=== PATIENT | male | born 1940 | race Caucasian/White ===

== ENCOUNTER 2017-12-11 18:19 | Inpatient (IN) | payer MEDICARE, BC ==
[~2017-12-11] VITALS: Ht 182.9 cm; Wt 112.9 kg
[~2017-12-11 18:19] MED LIST: ADULT LOW DOSE81 MG PO; ALLOPURINOL 10100 M1 PO; AMITRIPTYLINE H50 M2 PO; BACLOFEN20 MG PO; CENTRUM SILVER1 EAC1 PO; CENTRUM SILVER1 EAC4 PO; COREG CR20 MG PO; DIOVAN PO; DIOVAN160 MG PO; FIBER0.52 GM PO; FISH OIL 1,0001 EAC5 PO; FLEXERIL PO; FLORANEX TABLE1 EACH PO; GLUCOPHAGE1000 MG PO; GLUCOTROL5 MG PO; HYDROCODONE-AP1 EA10 PO; HYDROCODONE-AP1 EAC6 PO; LISINOPRIL-HCT1 EAC1 PO; MAGOX 400400 MG PO; MUCINEX TA600 MG/TA1 PO; OMEPRAZOLE20 MG PO; PIROXICAM10 MG PO; PROXICAM PO; SYNTHROID100 MCG PO; TAMSULOSIN HCL0.4 MG PO; TRAMADOL HCL50 MG PO; UNASYN 3 GM VIAL3 G1 IVPB; VANCOCIN 250 M250 M1 PO; ZYLOPRIM100 MG PO
[2017-12-11 18:22] VITALS: BP 151/92
[2017-12-11] MEDS ORDERED: FLEXERIL PO (18:27)
[2017-12-11] MEDS ORDERED: ASA81BEC PO (18:27)
[2017-12-11] MEDS ORDERED: MIRALAX17 GM PO (18:28)
[2017-12-11] MEDS ORDERED: ELIQUIS5 MG PO (18:28)
[2017-12-11] MEDS ORDERED: TROSPIUM CHLORI20 MG PO (18:28)
[2017-12-11] MEDS ORDERED: FELDENE10 MG PO (18:29)
[2017-12-11] MEDS ORDERED: EFFER-K 10 MEQ10 ME1 PO (18:29)
[2017-12-11 18:46] LABS: ABSOLUTE EOSINOPHILS 0.1 thou/uL (0.0-0.7); ABSOLUTE LYMPHOCYTES 1.3 thou/uL (0.8-5.3); ABSOLUTE MONOCYTES 0.5 thou/uL (0.0-1.2); ABSOLUTE NEUTROPHILS 6.1 thou/uL (1.6-8.1); BASOPHILS 0.3 %; EOSINOPHILS 1.2 %; HEMATOCRIT 43.1 % (42.0-52.0); HEMOGLOBIN 14.2 gm/dL (14.0-18.0); LYMPHOCYTES 16.4 %; MCH 29.4 pg (26.0-34.0); MCV 88.9 fL (80.0-100.0); MONOCYTES 6.5 %; MPV 9.6 fl. (7.2-11.1); NUCLEATED RBCS 0 /100WBC; PLATELET COUNT* 117 thou/uL (150-400); POLYS 75.6 %; RBC 4.85 mil/uL (4.50-6.00); RDW-CV 16.5 % (10.5-14.5); WBC 8.1 thou/uL (4.0-11.0)
[2017-12-11 18:49] LABS: CALCIUM 8.1 mg/dL (8.5-10.1); CREATININE 1.5 mg/dL (0.6-1.3); POTASSIUM 4.7 mmol/L (3.5-5.1)
[2017-12-11 18:53] LABS: ALBUMIN 3.6 g/dL (3.4-5.0); TOTAL BILIRUBIN 0.5 mg/dL (<0.1-1.0); TOTAL PROTEIN 7.9 g/dL (6.4-8.2)
[2017-12-11 18:57] LABS: APTT 34.5 Seconds (25.0-31.3); INR 1.3; PROTIME 12.2 Seconds (9.20-11.50)
[2017-12-11 19:00] LABS: BE -1.3 mmol/L (-2 to +3); HCO3 22.5 mmol/L (22.0-26.0); PCO2 35.1 mmHg (35.0-45.0); pH 7.425 (7.340-7.450)
[2017-12-11 19:02] LABS: PO2 129.4 mmHg (75.0-100.0)
[2017-12-11 19:21] LABS: URINE BILIRUBIN NEGATIVE (Negative); URINE BLOOD 2+ (Negative); URINE CLARITY HAZY; URINE COLOR YELLOW; URINE GLUCOSE-RANDOM NEGATIVE (Negative); URINE KETONES NEGATIVE (Negative); URINE LEUKOCYTES-REFLEX 2+ (Negative); URINE NITRITE-REFLEX POSITIVE (Negative); URINE PROTEIN NEGATIVE (Negative); URINE SPECIFIC GRAVITY 1.025 (1.005-1.030)
[2017-12-11 19:27] LABS: BACTERIA-REFLEX 1-9 Few /HPF (None Seen); CASTS None Seen /LPF (None Seen); CRYSTALS None Seen /LPF (None Seen); SQUAMOUS 4-10 Moderate /LPF (0-3); URINE RBC 3-10 Few /HPF (0-2); URINE WBC-REFLEX >25 Many /HPF (0-5)
[2017-12-11 19:29] LABS: AMP/METHAMP Negative (Negative); BARBITURATES Negative (Negative); BENZODIAZEPINES Negative (Negative); COCAINE Negative (Negative); METHADONE Negative (Negative); OPIATES POSITIVE (Negative); PCP Negative (Negative); THC Negative (Negative)
[2017-12-11 19:41] LABS: TROPONIN-I LEVEL <0.06 ng/mL (<0.06)
[2017-12-11 22:28] VITALS: BP 167/83
[2017-12-11 23:00] VITALS: BP 183/99
[2017-12-12] VITALS (7 sets, daily range): BP systolic 145–173; BP diastolic 68–108
--- NOTE | 2017-12-12 10:06 | EKG ---
[place] [address] ELECTROCARDIOGRAM REPORT Name: LAINE MURRELL Room: [address] IN .R.#: [id number] Admission: 12/11/17 Attend Phys: Francie Turner MD Discharge: Date of : 42 Report #: [id number] THIS REPORT FOR: //name// [facility] ED Test Date: 2017-12-11 Test Time: 18:43:35 Pat Name: LAINE MURRELL Department: Room: Gender: Inverter And Clipper: Laura HUYNH : 1940 Requested By: Shannan Ly Order Number: [id number] MD: Alex Sandoval Measurements Intervals [place] Rate: 78 P: 178 MT: 268 QRS: -30 QRSD: 190 T: 139 QT: 487 QTc: 555 Interpretive Statements Sinus or ectopic atrial rhythm Prolonged MT interval Left bundle branch block Compared to ECG 11/03/2016 11:24:53 no change Electronically Signed On 12-12-2017 10:06:25 CDT by Alex Sandoval [email or web address] <ELECTRONICALLY SIGNED> By: Alex Sandoval MD, [facility] 12/12/17 1006 1843 1843 Alex Sandoval MD, [facility] /EPI
[2017-12-13 03:29] VITALS: BP 141/73
[2017-12-13 04:57] LABS: HEMATOCRIT 41.7 % (42.0-52.0); HEMOGLOBIN 13.5 gm/dL (14.0-18.0); MCH 28.9 pg (26.0-34.0); MCHC 32.5 g/dL (28.0-37.0); MCV 88.8 fL (80.0-100.0); MPV 9.6 fl. (7.2-11.1); RBC 4.69 mil/uL (4.50-6.00); RDW-CV 16.1 % (10.5-14.5); WBC 8.1 thou/uL (4.0-11.0)
[2017-12-13 05:10] LABS: GLYCOHEMOGLOBIN (HGB A1C) 5.6 % (4.8-5.6)
[2017-12-13 05:22] LABS: CALCIUM 7.8 mg/dL (8.5-10.1); CREATININE 1.2 mg/dL (0.6-1.3); POTASSIUM 4.4 mmol/L (3.5-5.1)
[2017-12-13 07:30] VITALS: BP 152/88
[2017-12-13 12:16] VITALS: BP 187/119
[2017-12-13 15:50] VITALS: BP 177/103
[2017-12-13 20:00] VITALS: BP 177/109
[2017-12-14] VITALS: BP 161/97
[2017-12-14 04:00] VITALS: BP 164/87
[2017-12-14 11:45] VITALS: BP 154/98
[2017-12-14 11:46] LABS: HEMATOCRIT 42.9 % (42.0-52.0); HEMOGLOBIN 14.1 gm/dL (14.0-18.0); MCH 28.9 pg (26.0-34.0); MCV 87.6 fL (80.0-100.0); MPV 9.3 fl. (7.2-11.1); RBC 4.9 mil/uL (4.50-6.00); WBC 6.9 thou/uL (4.0-11.0)
[2017-12-14 11:50] LABS: CALCIUM 8.4 mg/dL (8.5-10.1); CREATININE 1.2 mg/dL (0.6-1.3); POTASSIUM 3.8 mmol/L (3.5-5.1)
[2017-12-14 16:18] VITALS: BP 147/92
[2017-12-15 00:14] VITALS: BP 174/94
[2017-12-15 03:44] VITALS: BP 162/89
[2017-12-15 08:00] VITALS: BP 134/107
[2017-12-15] MEDS ORDERED: PROBIOTIC1 EAC1 PO (10:23)
[2017-12-15] MEDS ORDERED: LEVOTHYROXINE112 MCG PO (10:23)
[2017-12-15] MEDS ORDERED: BACTRIM DS TAB1 EACH PO (10:23)
[2017-12-15 11:51] VITALS: BP 134/107
== END 2017-12-15 15:05 | disposition home health service (06) | DRG 689 ==
LOC: M.ERS 18:19 → M.2W 21:09 → M.TBA-ER 21:09 → M.2W 22:38 → M.3W 12-14 16:06
PROVIDERS: Family Medicine; Internal Medicine; Personal Emergency Response Attendant; ADMIT Internal Medicine
DX: N39.0 Urinary tract infection, site not specified (principal); G92 Toxic encephalopathy; M10.9 Gout, unspecified; Z96.653 Presence of artificial knee joint, bilateral; S00.93XA Contusion of unspecified part of head, initial encounter; W18.30XA Fall on same level, unspecified, initial encounter; E66.9 Obesity, unspecified; E03.9 Hypothyroidism, unspecified; I44.0 Atrioventricular block, first degree; B95.62 Methicillin resistant Staphylococcus aureus infection as the cause of diseases classified elsewhere; N18.3 Chronic kidney disease, stage 3 (moderate); I12.9 Hypertensive chronic kidney disease with stage 1 through stage 4 chronic kidney disease, or unspecified chronic kidney disease; E11.22 Type 2 diabetes mellitus with diabetic chronic kidney disease; Y93.89 Activity, other specified; Z68.33 Body mass index [BMI] 33.0-33.9, adult; Y92.002 Bathroom of unspecified non-institutional (private) residence as the place of occurrence of the external cause; Y99.8 Other external cause status; Z86.73 Personal history of transient ischemic attack (TIA), and cerebral infarction without residual deficits; Z79.82 Long term (current) use of aspirin; Z79.84 Long term (current) use of oral hypoglycemic drugs; Z79.899 Other long term (current) drug therapy; Z88.1 Allergy status to other antibiotic agents; Z88.5 Allergy status to narcotic agent; Z83.3 Family history of diabetes mellitus

== ENCOUNTER 2018-08-19 07:22 | Inpatient (IN) | payer MEDICARE, BC ==
[2018-08-19] VITALS (14 sets, daily range): BP systolic 96–131; BP diastolic 56–73
[~2018-08-19] VITALS: Ht 182.9 cm; Wt 108.9 kg
--- NOTE | ~2018-08-19 | CON ---
[address] [address] CONSULTATION Name: LAINE MURRELL Room: [address] IN M.R.#: [id number] Admission: 08/19/18 Attend Phys: Miguel Phillips MD Discharge: Date of : 42 Report #: [id number] THIS REPORT FOR: //name// CC: Miguel Salinas DATE OF SERVICE: 08/24/2018 This is GINGER Mcnally, dictating in collaboration with Dr. Alvarez Aj. REASON FOR CONSULTATION: Bilateral diabetic foot ulcerations, peripheral artery disease. HISTORY OF PRESENT ILLNESS: The patient is a pleasant 78-year-old male who was brought to the Emergency Department via EMS with concerns regarding left-sided facial drooping and slurred speech. The patient lives with his son who is at the bedside currently. A CT of the head obtained upon admission showed a known old right frontal lobe infarct, no new acute findings. He was found to be in septic shock secondary to urinary tract infection. He has been treated with antibiotic therapy per Infectious Disease. The patient has an extensive history of bilateral diabetic foot ulcers. He reports he follows regularly with his protection mgr, Dr. Segundo. He reports about 5 or 6 months ago, he was evaluated at regarding his peripheral artery disease. He did undergo what sounds like an arteriogram with stent placement in the right lower extremity. His son reports he was told that there was nothing that needed to be done on the left leg. An arterial ultrasound was obtained yesterday due to his bilateral lower extremity wounds as well as bilateral lower extremity pain, which demonstrated monophasic waveforms throughout the left lower extremity consistent with diffuse atherosclerotic disease. We have been asked to evaluate the patient and give our opinion regarding these findings. He has been treated with a wound VAC on the left foot. He previously underwent a right second and third toe amputations, which has now almost completely healed following his right lower extremity arteriogram. He has no current specific complaints, denies any nausea or vomiting, fevers or chills, chest pain or shortness of breath. PAST MEDICAL HISTORY: 1. Hypertension. 2. Atrial fibrillation. 3. Type 2 diabetes mellitus. 4. History of a stroke affecting the left side. 5. C-spine injury requiring surgical repair. 6. Brain hemorrhage. 7. Carpal tunnel. 8. Gout. 9. [place] [address] CONSULTATION Name: LAINE MURRELL Room: [address]#: [id number] Admission: 08/19/18 Attend Phys: Miguel Phillips MD Discharge: Date of : 41 Report #: [id number] 10. Chronic bilateral foot wounds. 11. Chronic kidney disease stage 3. 12. Coronary artery disease. 13. Chronic obstructive pulmonary disease. FAMILY HISTORY: Significant for diabetes. SOCIAL HISTORY: He is a nonsmoker, denies any alcohol or illicit drug use. ALLERGIES: 1. MORPHINE. 2. CODEINE. 3. TETRACYCLINE. HOME MEDICATIONS: Please refer to the MAR. REVIEW OF SYSTEMS: A 12-point review of systems has been reviewed and is negative except for the above-mentioned in the history of present illness. PHYSICAL EXAMINATION: GENERAL: He is alert, oriented, in no acute distress. VITAL SIGNS: Temperature 36.6, heart rate 76, respiratory rate 22, blood pressure 155/68. HEENT: Head is normocephalic, atraumatic. NECK: Supple, without jugular venous distention or carotid bruit. HEART: Regular rate. CHEST: Lungs are diminished throughout, no wheezing or rhonchi noted. ABDOMEN: Soft, nontender, positive bowel sounds. EXTREMITIES: He has palpable bilateral radial, femoral and right dorsalis pedis pulses. He has dopplerable bilateral PT and left DP pulses. He has had previous amputations of the right second and third toes, there is a very small dry eschar at the amputation site. He has a wound on the plantar aspect of the right first MTP joint with periwound callus. There is a wound on the plantar aspect of the left MTP joint. He has 2+ edema to the left lower extremity with mild erythema and excoriation on the dorsum of the left foot. NEUROLOGIC: He has a somewhat slowed and slurred speech, left-sided weakness. LABORATORY DATA: Hemoglobin 9.6, hematocrit is 29.1, white blood cell count 7.4, platelets 112. Sodium 138, potassium 3.7, chloride 103, CO2 of 28, BUN is 33, creatinine is 1.4, glucose is 124. ASSESSMENT AND PLAN: 1. Peripheral artery disease with bilateral nonhealing diabetic foot ulcers. It sounds like he has had a recent revascularization to the right lower extremity at . Arterial ultrasound suggests triphasic waveforms throughout the right lower extremity, but monophasic on the left[place] [address] CONSULTATION Name: LAINE MURRELL Room: [facility] IN [place].#: [id number] Admission: 08/19/18 Attend Phys: Miguel Phillips MD Discharge: Date of : 41 Report #: [id number] brachial indices for more physiologic evaluation of his arterial perfusion. No urgent surgical intervention is currently indicated. Continue local wound care as currently ordered. 2. Septic shock secondary to urinary tract infection. Continue antibiotic therapy per Infectious Disease. 3. Chronic kidney disease. 4. History of a stroke. 5. Atrial fibrillation, chronically anticoagulated. 6. Diabetes mellitus type 2. We thank you for the opportunity to participate in the care of the patient. Please feel free to contact our office with any questions or concerns. By: 1625 [id number] Meier /jorgito
--- NOTE | ~2018-08-19 | CON ---
[address] [address] CONSULTATION Name: LAINE MURRELL Room: [address] IN M.R.#: [id number] Admission: 08/19/18 Attend Phys: Miguel Phillips MD Discharge: Date of : 41 Report #: [id number] THIS REPORT FOR: //name// CC: Miguel Salinas HISTORY OF PRESENT ILLNESS: This 78-year-old male is well known to me for chronic ulcerations involving his right and left foot, has undergone several amputations, which other than that of the right foot went on to heal uneventfully of the second and third metatarsophalangeal joints, but now has healed with secondary intention. He has had chronic wounds regarding the plantar aspect of the first metatarsal of the right foot, which is almost completely resolved, that of the left foot is present grade 2, undergoing treatment utilizing wound VAC and topical wound care products and appears to be improving at this time. PAST MEDICAL HISTORY: Positive for diffuse peripheral vascular disease, diabetes mellitus, coronary artery disease, COPD. ALLERGIES: HE DOES HAVE ALLERGIES TO MORPHINE, CODEINE, AND TETRACYCLINE. PHYSICAL EXAMINATION: Evaluation of the patient's vascularity revealed that the dorsalis pedis and posterior tibial arteries were palpable 2/4 bilaterally, he has had chronic lower extremity edema associated with bilateral lymphedema and some degree of venous insufficiency. He does have decreased reflexes bilaterally, his sensorium reveals absence of pain sensation and decreased vibratory sensation bilaterally. Range of motion of the ankles, subtalar joints is limited at this time. He does demonstrate bilateral multiple hammertoe deformities. He does demonstrate ulcerations on the plantar aspect of the first metatarsal heads, that of the right foot is almost completely resolved, that of the left foot is significantly improved with recent debridement and utilization of a wound VAC, which has improved the wound since my last evaluation of the patient on 08/10/2018. IMPRESSION: 1. Diabetic grade 2 ulceration plantar aspect of the second metatarsal without evidence of infection, resolving grade 1 diabetic ulceration plantar aspect of the right foot. 2. Diffuse peripheral vascular disease. 3. Diabetic neuropathy. PLAN: Since the patient has been admitted to the hospital, it appears that he has been improving and if indeed he is going to be discharged in the near future, I do not feel that beginning aggressive [place] [address] CONSULTATION Name: LAINE MURRELL Room: [address] IN [facility]#: [id number] Admission: 08/19/18 Attend Phys: Miguel Phillips MD Discharge: Date of : 41 Report #: [id number] appropriate; however, if his status changes then I would suggest reinstitution of wound VAC therapy and offloading of the ulcerations; however, if discharge in near future, will continue wound treatment at home. Thank you for the opportunity of this consultation. By: 132[address] Ambrosio DPM /jorgito
[~2018-08-19 07:22] MED LIST changes: +ASA81BEC PO; +BACTRIM DS TAB1 EACH PO; +EFFER-K 10 MEQ10 ME1 PO; +ELIQUIS5 MG PO; +FELDENE10 MG PO; +LEVOTHYROXINE112 MCG PO; +MIRALAX17 GM PO; +PROBIOTIC1 EAC1 PO; +TROSPIUM CHLORI20 MG PO
[2018-08-19 07:33] LABS: HEMATOCRIT 31.9 % (42.0-52.0); HEMOGLOBIN 10.4 gm/dL (14.0-18.0); MCH 27.8 pg (26.0-34.0); MCHC 32.6 g/dL (28.0-37.0); MCV 85.3 fL (80.0-100.0); NUCLEATED RBCS 0 /100WBC; PLATELET COUNT* 127 thou/uL (150-400); RBC 3.74 mil/uL (4.50-6.00); RDW-CV 15.7 % (10.5-14.5); WBC 24.1 thou/uL (4.0-11.0)
[2018-08-19 07:43] LABS: POC CA IONIZED 4.4 mg/dL (4.5-5.3); POC CREATININE 1.8 mg/dL (0.6-1.3); POC HEMOGLOBIN 11.6 g/dL (12.0-17.0); POC POTASSIUM 4.2 mmol/L (3.5-4.9)
[2018-08-19 08:00] LABS: APTT 27.3 Seconds (25.0-31.3); INR 1.2
[2018-08-19 08:01] LABS: CALCIUM 8.6 mg/dL (8.5-10.1); CREATININE 2.1 mg/dL (0.6-1.3); POTASSIUM 4.3 mmol/L (3.5-5.1)
[2018-08-19 08:12] LABS: ALBUMIN 3.2 g/dL (3.4-5.0); TOTAL BILIRUBIN 0.5 mg/dL (<0.1-1.0); TOTAL PROTEIN 7.3 g/dL (6.4-8.2); TROPONIN-I LEVEL 0.31 ng/mL (<0.06)
[2018-08-19 08:29] LABS: INFLUENZA A ANTIGEN None Detected (None Detect); INFLUENZA B ANTIGEN None Detected (None Detect)
[2018-08-19 08:51] LABS: ABSOLUTE LYMPHOCYTES 0.2 thou/uL (0.8-5.3); ABSOLUTE MONOCYTES 0.7 thou/uL (0.0-1.2); ABSOLUTE NEUTROPHILS 23.1 thou/uL (1.6-8.1)
[2018-08-19 08:52] LABS: ANISOCYTOSIS Occasional; PLATELET ESTIMATE DECREASED
[2018-08-19 09:33] LABS: URINE BILIRUBIN NEGATIVE (Negative); URINE BLOOD NEGATIVE (Negative); URINE CLARITY CLEAR; URINE COLOR YELLOW; URINE GLUCOSE-RANDOM NEGATIVE (Negative); URINE KETONES NEGATIVE (Negative); URINE LEUKOCYTES 3+ (Negative); URINE NITRITE NEGATIVE (Negative); URINE PROTEIN NEGATIVE (Negative); URINE SPECIFIC GRAVITY 1.015 (1.005-1.030); URINE UROBILINOGEN 0.2 E.U./dl (0.2-1.0)
[2018-08-19 10:17] LABS: SQUAMOUS 0-3 Few /LPF (0-3); WBC CLUMPS Few (None Seen)
[2018-08-19 10:18] LABS: BACTERIA >30 Many /HPF (None Seen); MUCUS None Seen strn/LPF (None Seen); URINE RBC 0-2 Rare /HPF (0-2); URINE WBC >25 Many /HPF (0-5)
[2018-08-19 10:19] LABS: CASTS None Seen /LPF (None Seen); CRYSTALS None Seen /LPF (None Seen)
--- NOTE | 2018-08-19 12:20 | EKG ---
[place] [address] ELECTROCARDIOGRAM REPORT Name: LAINE MURRELL Room: [address] ADM IN M.R.#: [id number] Admission: 08/19/18 Attend Phys: Miguel Phillips MD Discharge: Date of : 42 Report #: [id number] THIS REPORT FOR: //name// [facility] ED Test Date: 2018-08-19 Test Time: 07:48:30 Pat Name: LAINE MURRELL Department: Room: [facility] Gender: M Rehabilitation Assistant: PURA : 1940 Requested By: Gunnar Carias Order Number: [id number] MD: Alex Sandoval Measurements Intervals [place] Rate: 108 P: -68 MI: 117 QRS: 144 QRSD: 143 T: 26 QT: 391 QTc: 524 Interpretive Statements Atrial-sensed ventricular-paced rhythm No further analysis attempted due to paced rhythm Compared to ECG 12/11/2017 18:43:35 rate increased Electronically Signed On 08-19-2018 12:20:22 [employer] by Alex Sandoval [email or web address] <ELECTRONICALLY SIGNED> By: Alex Sandoval MD, [facility] 08/19/18 1220 0748 0748 Alex Sandoval MD, [facility] /EPI
[2018-08-19] MEDS ORDERED: FLOMAX0.4 MG PO (15:52)
[2018-08-19] MEDS ORDERED: ATORVASTATIN CA40 MG PO (15:52)
[2018-08-19] MEDS ORDERED: TOPROL XL100 MG PO (15:53)
[2018-08-20] VITALS (14 sets, daily range): BP systolic 109–139; BP diastolic 63–82
[2018-08-20 05:42] LABS: HEMOGLOBIN 9.4 gm/dL (14.0-18.0); MCHC 32.4 g/dL (28.0-37.0); MCV 86.5 fL (80.0-100.0); MPV 8.8 fl. (7.2-11.1); RBC 3.36 mil/uL (4.50-6.00); RDW-CV 15.9 % (10.5-14.5); WBC 12.1 thou/uL (4.0-11.0)
[2018-08-20 06:06] LABS: CREATININE 1.8 mg/dL (0.6-1.3); POTASSIUM 4.5 mmol/L (3.5-5.1)
[2018-08-20 06:12] LABS: MAGNESIUM 0.9 mg/dL (1.8-2.4)
--- NOTE | 2018-08-20 07:37 | CON ---
[address] [address] CONSULTATION Name: LAINE MURRELL Room: [address] IN M.R.#: [id number] Admission: 08/19/18 Attend Phys: Miguel Phillips MD Discharge: Date of : 41 Report #: [id number] THIS REPORT FOR: //name// CC: Miguel Salinas DATE OF SERVICE: 08/19/2018 INFECTIOUS DISEASE CONSULTATION ATTENDING PHYSICIAN: Miguel Phillips M.D. REASON FOR EVALUATION: Septic shock, likely upper genitourinary tract infection. HISTORY OF PRESENT ILLNESS: Chart reviewed, the patient examined. This is a 78-year-old well known to me, who has diabetes mellitus type 2 with significant sequelae including peripheral neuropathy, I think, with some vasculopathy and lower extremity wounds that are ongoing over the last several years, previous amputations, who presented through the Emergency Room with complaints of left-sided weakness, facial droop and slurred speech noted last evening, felt fairly normal, woke up and was evaluated emergently due to possible stroke. This was concluded not to be the case. He was found to be hypotensive and started on pressor support. He was seen in the Intensive Care Unit. He is at least mildly encephalopathic. Urinalysis did show evidence of marked pyuria. Lactic acid was elevated at 2.8 and a creatinine was 2.1. Chest x-ray was remarkable for some mild basilar likely atelectasis. Influenza antigen was negative. He was started empirically on combination antimicrobial therapy with piperacillin and tazobactam and given a single dose of vancomycin and levofloxacin. He denies significant pain at this point. He is on supplemental oxygen, although he denies dyspnea. ALLERGIES: MORPHINE, CODEINE AND TETRACYCLINE. MEDICATIONS: Include apixaban, aspirin, allopurinol, levofloxacin, levothyroxine, Trospium, cyclobenzaprine, amitriptyline, baclofen, now on vancomycin, insulin, ipratropium and albuterol inhaler, pantoprazole, p.r.n. analgesics and antiemetics. He is on norepinephrine per drip and piperacillin and tazobactam. PAST MEDICAL HISTORY: As described above, hypertension; history of diabetes mellitus type 2, complicated by peripheral neuropathy. 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 SOCIAL HISTORY: Nonsmoker[place] [address] CONSULTATION Name: LAINE MURRELL [place] Room: [address]#: [id number] Admission: 08/19/18 Attend Phys: Miguel Phillips MD Discharge: Date of : 41 Report #: [id number] FAMILY HISTORY: Noncontributory. REVIEW OF SYSTEMS: Somewhat limited. Denies any significant gastrointestinal-related complaints. No fevers. PHYSICAL EXAMINATION: GENERAL: He has hfht-ak-ymjxewgj encephalopathy with moderate distress. He appears chronically ill. VITAL SIGNS: Temperature 99.4, pulse 98, respirations 18 and blood pressure with support 113/62 and it had been as low as systolics in the upper 70s. NECK: Remarkable for a recently placed right-sided neck central venous catheter that is oozing and otherwise supple. HEENT: Extraocular muscles intact. LUNGS: Diminished breath sounds. HEART: Borderline tachycardic, appears to be regular, occasional ectopy. ABDOMEN: Soft, nontender and nondistended. EXTREMITIES: Left lower extremity, there is an ulcer overlying the plantar aspect of the first metatarsophalangeal joint and somewhat friable site of the wound VAC that had been placed. This was removed. GENITOURINARY: Deferred. RECTAL: Deferred. LABORATORY DATA: Head CT showed no acute intracranial process. PT 12.0, INR of 1.2. Electrolytes: Sodium 140, potassium 4.3, chloride 106, bicarb 23, anion gap of 11, BUN and creatinine 23 and 2.1 and glucose of 93. LFTs unremarkable. Albumin of 3.2. Total protein 7.3. Estimated GFR of 31. Lactic acid 2.8. Chest x-ray as described above. Influenza antigen was negative. CBC: White count of 24.1, H and H 10.4 and 31.9 and platelets of 127,000. He does have absolute lymphocytopenia of 200. ASSESSMENT AND PLAN: Septic shock, complicated with multiorgan dysfunction. I think on the basis of upper genitourinary tract infection, I agree with broad-spectrum antimicrobial therapy. I would presume a gram-negative etiology. On evaluation of the foot wound, I do not think this is what is driving it that can entirely exclude gram-positive etiology as well. Vancomycin, Zosyn and Levaquin is reasonable combination. He is certainly a risk for infections in general. We will await results. Continue supportive measures including pressors as required. <ELECTRONICALLY SIGNED> By: Santosh Osman MD 08/20/18 0737 1228 [id number] Osman MD /nt
--- NOTE | 2018-08-20 10:22 | EKG ---
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: : 1940 Requested By: Miguel Phillips Order Number: [id number] Karli MD: Alex Sandoval Measurements Intervals [place] Rate: 99 P: -37 [place]: 180 QRS: 144 QRSD: 145 T: 44 QT: 403 QTc: 518 Interpretive Statements Atrial-sensed ventricular-paced rhythm No further analysis attempted due to paced rhythm Compared to ECG 08/19/2018 07:48:30 No significant changes Electronically Signed On 08-20-2018 10:22:50 [employer] by Alex Sandoval [email or web address] <ELECTRONICALLY SIGNED> By: Alex Sandoval MD, [facility] 08/20/18 1022 5 5 Alex Sandoval MD, [facility] /EPI
[2018-08-20 11:14] LABS: MAGNESIUM 1.9 mg/dL (1.8-2.4)
[2018-08-20 11:20] LABS: TROPONIN-I LEVEL 1.41 ng/mL (<0.06)
--- NOTE | 2018-08-20 16:59 | CON ---
[address] [address] CONSULTATION Name: LAINE MURRELL Room: [address] IN M.R.#: [id number] Admission: 08/19/18 Attend Phys: Miguel Phillips MD Discharge: Date of : 41 Report #: [id number] THIS REPORT FOR: //name// CC: Miguel Salinas DATE OF SERVICE: 08/20/2018 CARDIOLOGY CONSULTATION HISTORY OF PRESENT ILLNESS: The patient is a 78-year-old single white male who was brought to the hospital yesterday complaining of foot pain. He was noted to have an elevated troponin. I was asked to see him for further evaluation and treatment. The patient has an extensive past medical history. Unfortunately, most of his records are not here at [facility]. He has had a previous coronary artery stenting at . He has also had peripheral arterial disease with stents in both legs in the past. He has required previous amputation of toes from his right foot. He also had a defibrillator implanted at years ago. He currently is followed at [facility] in [facility]. He just saw his food safety scientist this past year. The patient was last admitted to [facility] in November with confusion, was found to have osteomyelitis and he underwent debridement of his foot. The patient is not very active because of his PAD. He was brought to the Emergency Room yesterday morning complaining of slurred speech. A code stroke was activated. He was felt to have urinary tract infection with evidence of sepsis. He was confused. He was noted to have a borderline elevated troponin. I was asked to see him for further reevaluation and treatment. He denies recent chest pain, shortness of breath, palpitations, syncope. Denies any discharges of his defibrillator. PAST MEDICAL HISTORY: Otherwise, he has had previous bilateral knee replacements, carpal tunnel surgery, diabetes, hypertension, hyperlipidemia. MEDICATIONS ON ADMISSION: Consisted of aspirin, Eliquis, Elavil, metformin, lisinopril/HCTZ, allopurinol, Flomax, Lipitor, metoprolol, omeprazole. ALLERGIES: He has intolerance to CODEINE AND MORPHINE. FAMILY HISTORY: Negative for heart disease. SOCIAL HISTORY: He is , lives with son in [place]. No smoking. Rarely drinks alcohol. REVIEW OF SYSTEMS: He apparently has had a previous stroke. He has a history of asthma. No history of peptic ulcer disease, has chronic kidney disease, no cancer, no chronic skin condition, [place] [address] CONSULTATION Name: RUTHY MURRELLLUANA Recio Room: [address]#: [id number] Admission: 08/19/18 Attend Phys: Miguel Phillips MD Discharge: Date of : 41 Report #: [id number] PHYSICAL EXAMINATION: GENERAL: Reveals an elderly, frail-appearing male, lying in bed, appeared in no acute distress. VITAL SIGNS: He has a blood pressure of 110/60, pulse is 100, he is afebrile. HEENT: He is anicteric. Conjunctivae pink. Mucous membranes appear dry. NECK: Veins do not appear distended. CHEST: Clear to auscultation. CARDIOVASCULAR: Regular rate and rhythm. ABDOMEN: Soft. EXTREMITIES: Had no edema. Dorsalis pedis pulse could not be palpated. SKIN: Cool and dry. NEUROLOGIC: Nonfocal. His ECG showed what appeared to represent T-wave sensing and ventricular capture. His workup so far included a chest x-ray yesterday that showed evidence of an ICD, some atelectasis, otherwise clear lung cheung. His chest x-ray, normal heart size, clear lung cheung. LABORATORY DATA: Sodium 144, BUN is 42, creatinine is 1.8, it has been 2.1 in the past. His troponin is 1.62. His white blood cell count 12.1, hemoglobin 9.4. IMPRESSION AND RECOMMENDATIONS: 1. Elevated troponin. Asymptomatic. Recommend no further cardiac evaluation. I would continue aspirin a day. I will attempt to obtain records from his food safety scientist at [facility] in [facility]. 2. Previous implantation of defibrillator. No recent discharges. 3. Peripheral arterial disease with previous lower extremity stenting. 4. Diabetes. 5. History of hypertension. 6. Previous toe amputation. 7. Confusion. Possibly related to infection. <ELECTRONICALLY SIGNED> By: Alex Sandoval MD, [facility] 08/20/18 1659 1041 1342David Gonsalo Sandoval MD, FACC /nt
[2018-08-21] VITALS (7 sets, daily range): BP systolic 129–154; BP diastolic 64–86
[2018-08-21 04:49] LABS: HEMATOCRIT 25.7 % (42.0-52.0); HEMOGLOBIN 8.5 gm/dL (14.0-18.0); MCH 28.5 pg (26.0-34.0); MCHC 33.2 g/dL (28.0-37.0); MCV 85.9 fL (80.0-100.0); MPV 9.4 fl. (7.2-11.1); RDW-CV 15.8 % (10.5-14.5); WBC 6.2 thou/uL (4.0-11.0)
[2018-08-21 05:50] LABS: CREATININE 1.6 mg/dL (0.6-1.3); MAGNESIUM 2.1 mg/dL (1.8-2.4); POTASSIUM 4.2 mmol/L (3.5-5.1)
[2018-08-22] VITALS (7 sets, daily range): BP systolic 107–146; BP diastolic 64–94
[2018-08-23] VITALS: BP 173/79
[2018-08-23 04:45] VITALS: BP 158/78
[2018-08-23 06:25] LABS: HEMATOCRIT 27.4 % (42.0-52.0); HEMOGLOBIN 9.1 gm/dL (14.0-18.0); MCH 28.2 pg (26.0-34.0); MCV 85.3 fL (80.0-100.0); MPV 9.2 fl. (7.2-11.1); NUCLEATED RBCS 0 /100WBC; PLATELET COUNT* 96 thou/uL (150-400); RBC 3.22 mil/uL (4.50-6.00); WBC 7.4 thou/uL (4.0-11.0)
[2018-08-23 06:32] LABS: ALBUMIN 2.2 g/dL (3.4-5.0); CALCIUM 8.5 mg/dL (8.5-10.1); CREATININE 1.4 mg/dL (0.6-1.3); POTASSIUM 4.2 mmol/L (3.5-5.1); TOTAL BILIRUBIN 0.3 mg/dL (<0.1-1.0); TOTAL PROTEIN 6.1 g/dL (6.4-8.2)
[2018-08-23 06:51] LABS: ABSOLUTE BASOPHILS 0.1 thou/uL (0.0-0.2); ABSOLUTE EOSINOPHILS 0.1 thou/uL (0.0-0.7); ABSOLUTE LYMPHOCYTES 1.3 thou/uL (0.8-5.3); ABSOLUTE MONOCYTES 0.2 thou/uL (0.0-1.2); ABSOLUTE NEUTROPHILS 5.7 thou/uL (1.6-8.1); ATYPICAL LYMPHS 2 %; METAMYELOCYTES 2 %; PLATELET ESTIMATE DECREASED
[2018-08-23 09:50] VITALS: BP 148/70
[2018-08-23 16:03] LABS: URINE BILIRUBIN NEGATIVE (Negative); URINE BLOOD 2+ (Negative); URINE CLARITY CLEAR; URINE COLOR YELLOW; URINE GLUCOSE-RANDOM NEGATIVE (Negative); URINE KETONES NEGATIVE (Negative); URINE NITRITE-REFLEX NEGATIVE (Negative); URINE PROTEIN TRACE (Negative); URINE SPECIFIC GRAVITY 1.015 (1.005-1.030); URINE UROBILINOGEN 0.2 E.U./dl (0.2-1.0)
[2018-08-23 16:07] LABS: URINE LEUKOCYTES-REFLEX 3+ (Negative)
[2018-08-23 16:10] LABS: BACTERIA-REFLEX 1-9 Few /HPF (None Seen); CASTS None Seen /LPF (None Seen); CRYSTALS None Seen /LPF (None Seen); SQUAMOUS NONE SEEN /LPF (0-3); URINE RBC 3-10 Few /HPF (0-2); URINE WBC-REFLEX 6-15 Few /HPF (0-5)
[2018-08-23 16:40] VITALS: BP 130/67
[2018-08-23 20:00] VITALS: BP 137/70
[2018-08-24] VITALS: BP 140/75
[2018-08-24 03:31] VITALS: BP 149/78
[2018-08-24 09:35] LABS: ABSOLUTE EOSINOPHILS 0.2 thou/uL (0.0-0.7); ABSOLUTE LYMPHOCYTES 0.7 thou/uL (0.8-5.3); ABSOLUTE MONOCYTES 0.7 thou/uL (0.0-1.2); ABSOLUTE NEUTROPHILS 5.7 thou/uL (1.6-8.1); BASOPHILS 0.4 %; HEMATOCRIT 29.1 % (42.0-52.0); HEMOGLOBIN 9.6 gm/dL (14.0-18.0); MCH 27.9 pg (26.0-34.0); MCV 84.7 fL (80.0-100.0); MONOCYTES 9.1 %; MPV 8.7 fl. (7.2-11.1); NUCLEATED RBCS 0 /100WBC; PLATELET COUNT* 112 thou/uL (150-400); POLYS 77.5 %; RBC 3.43 mil/uL (4.50-6.00); RDW-CV 15.8 % (10.5-14.5); WBC 7.4 thou/uL (4.0-11.0)
[2018-08-24 09:45] LABS: CALCIUM 9.1 mg/dL (8.5-10.1); CREATININE 1.4 mg/dL (0.6-1.3); POTASSIUM 3.7 mmol/L (3.5-5.1)
[2018-08-24 11:22] VITALS: BP 155/68
[2018-08-24 16:00] VITALS: BP 133/74
[2018-08-24 19:45] VITALS: BP 128/72
[2018-08-25 00:28] VITALS: BP 138/72
[2018-08-25 03:59] VITALS: BP 144/72
[2018-08-25 04:47] LABS: ABSOLUTE EOSINOPHILS 0.3 thou/uL (0.0-0.7); ABSOLUTE MONOCYTES 0.6 thou/uL (0.0-1.2); ABSOLUTE NEUTROPHILS 5.7 thou/uL (1.6-8.1); BASOPHILS 0.3 %; EOSINOPHILS 4.1 %; HEMATOCRIT 28.7 % (42.0-52.0); HEMOGLOBIN 9.6 gm/dL (14.0-18.0); LYMPHOCYTES 12.5 %; MCH 28.5 pg (26.0-34.0); MCHC 33.3 g/dL (28.0-37.0); MCV 85.6 fL (80.0-100.0); MONOCYTES 7.3 %; MPV 8.7 fl. (7.2-11.1); NUCLEATED RBCS 0 /100WBC; PLATELET COUNT* 115 thou/uL (150-400); POLYS 75.8 %; RBC 3.36 mil/uL (4.50-6.00); RDW-CV 15.6 % (10.5-14.5); WBC 7.6 thou/uL (4.0-11.0)
[2018-08-25 05:03] LABS: CALCIUM 8.9 mg/dL (8.5-10.1); CREATININE 1.4 mg/dL (0.6-1.3); POTASSIUM 4.2 mmol/L (3.5-5.1)
[2018-08-25 08:08] VITALS: BP 162/62
[2018-08-25 11:48] VITALS: BP 165/74
[2018-08-25 16:34] VITALS: BP 158/88
[2018-08-25 20:10] VITALS: BP 148/78
[2018-08-26] VITALS (7 sets, daily range): BP systolic 122–154; BP diastolic 65–79
[2018-08-26 05:25] LABS: HEMATOCRIT 28.4 % (42.0-52.0); HEMOGLOBIN 9.5 gm/dL (14.0-18.0); MCH 28.4 pg (26.0-34.0); MCHC 33.6 g/dL (28.0-37.0); MCV 84.4 fL (80.0-100.0); MPV 8.7 fl. (7.2-11.1); NUCLEATED RBCS 0 /100WBC; PLATELET COUNT* 140 thou/uL (150-400); RBC 3.36 mil/uL (4.50-6.00); RDW-CV 15.9 % (10.5-14.5); WBC 7.9 thou/uL (4.0-11.0)
[2018-08-26 05:31] LABS: CALCIUM 8.9 mg/dL (8.5-10.1); CREATININE 1.3 mg/dL (0.6-1.3)
[2018-08-26 06:49] LABS: ABSOLUTE EOSINOPHILS 0.4 thou/uL (0.0-0.7); ABSOLUTE LYMPHOCYTES 0.9 thou/uL (0.8-5.3); ABSOLUTE MONOCYTES 0.2 thou/uL (0.0-1.2); ABSOLUTE NEUTROPHILS 6.5 thou/uL (1.6-8.1); METAMYELOCYTES 1 %; MYELOCYTES 2 %
[2018-08-26 06:50] LABS: HYPOCHROMASIA 2+; MICROCYTES 2+
[2018-08-26 06:51] LABS: GIANT PLATELETS OCCASIONAL; PLATELET ESTIMATE ADEQUATE; TOXIC GRANULATION 1+
[2018-08-26 23:08] LABS: GLYCOHEMOGLOBIN (HGB A1C) 5.5 % (4.8-5.6)
[2018-08-27 04:13] VITALS: BP 140/68
[2018-08-27 07:20] VITALS: BP 154/75
[2018-08-27 11:50] VITALS: BP 154/75
[2018-08-27] MEDS ORDERED: AUGMENTIN 875-1 EACH PO (12:08)
[2018-08-27] MEDS ORDERED: NYAMYC15 GM TOP (12:11)
[2018-08-27 15:45] VITALS: BP 154/75
== END 2018-08-27 15:43 | DRG 871 ==
LOC: M.ERS 07:22 → M.TBA-ER 09:57 → M.3W 09:57 → M.ICU 09:57 → M.3W 08-20 11:59
PROVIDERS: Family Medicine; Internal Medicine; Internal Medicine Infectious Disease; Specialist; ADMIT Internal Medicine
PROC: 02HV33Z Insertion of Infusion Device into Superior Vena Cava, Percutaneous Approach (ICD-10-PCS; principal; 2018-08-19)
DX: A41.89 Other specified sepsis (principal); R65.21 Severe sepsis with septic shock; G92 Toxic encephalopathy; N17.0 Acute kidney failure with tubular necrosis; E43 Unspecified severe protein-calorie malnutrition; N39.0 Urinary tract infection, site not specified; K56.7 Ileus, unspecified; L03.116 Cellulitis of left lower limb; Z96.653 Presence of artificial knee joint, bilateral; E11.51 Type 2 diabetes mellitus with diabetic peripheral angiopathy without gangrene; N18.3 Chronic kidney disease, stage 3 (moderate); E11.22 Type 2 diabetes mellitus with diabetic chronic kidney disease; I12.9 Hypertensive chronic kidney disease with stage 1 through stage 4 chronic kidney disease, or unspecified chronic kidney disease; E03.9 Hypothyroidism, unspecified; J44.9 Chronic obstructive pulmonary disease, unspecified; E87.6 Hypokalemia; I25.10 Atherosclerotic heart disease of native coronary artery without angina pectoris; E78.5 Hyperlipidemia, unspecified; E11.42 Type 2 diabetes mellitus with diabetic polyneuropathy; E11.621 Type 2 diabetes mellitus with foot ulcer; I48.0 Paroxysmal atrial fibrillation; L97.519 Non-pressure chronic ulcer of other part of right foot with unspecified severity; M10.9 Gout, unspecified; Z86.73 Personal history of transient ischemic attack (TIA), and cerebral infarction without residual deficits; Z95.5 Presence of coronary angioplasty implant and graft; Z95.820 Peripheral vascular angioplasty status with implants and grafts; Z95.810 Presence of automatic (implantable) cardiac defibrillator; Z99.3 Dependence on wheelchair; Z79.01 Long term (current) use of anticoagulants; Z79.82 Long term (current) use of aspirin; Z79.84 Long term (current) use of oral hypoglycemic drugs; Z79.899 Other long term (current) drug therapy; Z88.1 Allergy status to other antibiotic agents; Z88.5 Allergy status to narcotic agent; Z83.3 Family history of diabetes mellitus; Z68.32 Body mass index [BMI] 32.0-32.9, adult; E11.628 Type 2 diabetes mellitus with other skin complications

== ENCOUNTER 2018-11-19 08:54 | Inpatient (IN) | payer MEDICARE, BC ==
[~2018-11-19] VITALS: Ht 182.9 cm; Wt 103.9 kg
[~2018-11-19 08:54] MED LIST changes: +ATORVASTATIN CA40 MG PO; +AUGMENTIN 875-1 EACH PO; +FLOMAX0.4 MG PO; +NYAMYC15 GM TOP; +TOPROL XL100 MG PO
[2018-11-19 08:57] VITALS: BP 162/95
[2018-11-19 09:18] LABS: HEMOGLOBIN 10.1 gm/dL (14.0-18.0); NUCLEATED RBCS 0 /100WBC; RDW-CV 19.3 % (10.5-14.5)
[2018-11-19 09:22] LABS: HEMATOCRIT 31.2 % (42.0-52.0); MCH 26.9 pg (26.0-34.0); MCHC 32.5 g/dL (28.0-37.0); MCV 82.8 fL (80.0-100.0); MPV 8.4 fl. (7.2-11.1); PLATELET COUNT* 120 thou/uL (150-400); RBC 3.77 mil/uL (4.50-6.00)
[2018-11-19] MEDS ORDERED: COREG CR20 MG PO (09:22)
[2018-11-19] MEDS ORDERED: FIBER0.52 G1 PO (09:23)
[2018-11-19] MEDS ORDERED: NORCO 5-325 TA1 EACH PO (09:24)
[2018-11-19] MEDS ORDERED: SYNTHROID100 MC1 PO (09:27)
[2018-11-19 09:31] LABS: ANION GAP 9 mmol/L (7-16); BUN 36 mg/dL (7-18); CALCIUM 8.6 mg/dL (8.5-10.1); CHLORIDE 111 mmol/L (98-107); CO2 24 mmol/L (21-32); CREATININE 1.6 mg/dL (0.6-1.3); GLUCOSE 103 mg/dL (70-99); POTASSIUM 5.5 mmol/L (3.5-5.1); SODIUM 144 mmol/L (136-145); TROPONIN-I LEVEL <0.06 ng/mL (<0.06)
[2018-11-19 09:33] LABS: URINE BILIRUBIN NEGATIVE (Negative); URINE BLOOD NEGATIVE (Negative); URINE CLARITY CLEAR; URINE COLOR YELLOW; URINE GLUCOSE-RANDOM NEGATIVE (Negative); URINE KETONES NEGATIVE (Negative); URINE LEUKOCYTES-REFLEX NEGATIVE (Negative); URINE NITRITE-REFLEX NEGATIVE (Negative); URINE PROTEIN NEGATIVE (Negative); URINE UROBILINOGEN 0.2 E.U./dl (0.2-1.0)
[2018-11-19 09:35] LABS: ALBUMIN 3.1 g/dL (3.4-5.0); ALKALINE PHOSPHATASE 75 U/L (46-116); APTT 31.3 Seconds (25.0-31.3); INR 1.1; NT-PRO BRAIN NAT PEPTIDE 1153 pg/mL (<300); PROTIME 11.6 Seconds (9.20-11.50); SGOT 21 U/L (15-37); SGPT 15 U/L (30-65); TOTAL BILIRUBIN 0.2 mg/dL (<0.1-1.0); TOTAL PROTEIN 6.8 g/dL (6.4-8.2)
[2018-11-19 09:54] LABS: CK-MB MASS 6.5 ng/mL (<0.5-3.6)
[2018-11-19 10:50] LABS: ABSOLUTE BASOPHILS 0.1 thou/uL (0.0-0.2); ABSOLUTE EOSINOPHILS 0.2 thou/uL (0.0-0.7); ABSOLUTE LYMPHOCYTES 0.5 thou/uL (0.8-5.3); ABSOLUTE MONOCYTES 0.1 thou/uL (0.0-1.2); ABSOLUTE NEUTROPHILS 4.3 thou/uL (1.6-8.1); ANISOCYTOSIS 1+; ATYPICAL LYMPHS 4 %; PLATELET ESTIMATE ADEQUATE
[2018-11-19 11:30] VITALS: BP 131/86
[2018-11-19 11:50] VITALS: BP 154/83
--- NOTE | 2018-11-19 15:30 | EKG ---
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: [place] : 1940 Requested By: Gunnar Carias Order Number: [id number] MD: Alex Sandoval Measurements Intervals [place] Rate: 63 P: -28 [place]: 178 QRS: 151 QRSD: 136 T: 71 QT: 451 QTc: 462 Interpretive Statements Ventricular-paced rhythm No further analysis attempted due to paced rhythm Compared to ECG 08/20/2018 09:26:21 Atrial-sensed ventricular-paced complex still seen Electronically Signed On 11-19-2018 15:30:03 CDT by Alex Sandoval [email or web address] <ELECTRONICALLY SIGNED> By: Alex Sandoval MD, [facility]AC 11/19/18 1530 1 Alex Sandoval MD, [facility] /EPI
[2018-11-19 16:33] VITALS: BP 144/75
[2018-11-19 19:14] LABS: CALCIUM 8.3 mg/dL (8.5-10.1); CREATININE 1.5 mg/dL (0.6-1.3); MAGNESIUM 1.2 mg/dL (1.8-2.4); POTASSIUM 5.4 mmol/L (3.5-5.1)
[2018-11-19 20:00] VITALS: BP 131/88
[2018-11-20] VITALS (7 sets, daily range): BP systolic 152–171; BP diastolic 70–84
[2018-11-20 09:33] LABS: ABSOLUTE EOSINOPHILS 0.2 thou/uL (0.0-0.7); ABSOLUTE LYMPHOCYTES 0.6 thou/uL (0.8-5.3); ABSOLUTE MONOCYTES 0.4 thou/uL (0.0-1.2); ABSOLUTE NEUTROPHILS 3.3 thou/uL (1.6-8.1); BASOPHILS 0.5 %; EOSINOPHILS 4.7 %; HEMOGLOBIN 9.7 gm/dL (14.0-18.0); LYMPHOCYTES 14.1 %; MCH 26.9 pg (26.0-34.0); MCHC 32.4 g/dL (28.0-37.0); MONOCYTES 8.4 %; MPV 7.9 fl. (7.2-11.1); NUCLEATED RBCS 0 /100WBC; PLATELET COUNT* 109 thou/uL (150-400); POLYS 72.3 %; RBC 3.62 mil/uL (4.50-6.00); RDW-CV 19.4 % (10.5-14.5); WBC 4.6 thou/uL (4.0-11.0)
[2018-11-20 10:10] LABS: ALBUMIN 2.9 g/dL (3.4-5.0); CALCIUM 8.4 mg/dL (8.5-10.1); CREATININE 1.3 mg/dL (0.6-1.3); POTASSIUM 5.3 mmol/L (3.5-5.1); TOTAL BILIRUBIN 0.3 mg/dL (<0.1-1.0); TOTAL PROTEIN 6.4 g/dL (6.4-8.2)
[2018-11-21] VITALS: BP 144/63
[2018-11-21 04:00] VITALS: BP 149/77
[2018-11-21 05:19] LABS: ABSOLUTE EOSINOPHILS 0.3 thou/uL (0.0-0.7); ABSOLUTE LYMPHOCYTES 0.7 thou/uL (0.8-5.3); ABSOLUTE MONOCYTES 0.5 thou/uL (0.0-1.2); ABSOLUTE NEUTROPHILS 3.6 thou/uL (1.6-8.1); BASOPHILS 0.6 %; EOSINOPHILS 5.4 %; HEMATOCRIT 32.1 % (42.0-52.0); HEMOGLOBIN 10.3 gm/dL (14.0-18.0); LYMPHOCYTES 13.5 %; MCH 26.5 pg (26.0-34.0); MCHC 32.3 g/dL (28.0-37.0); MCV 82.3 fL (80.0-100.0); MONOCYTES 9.9 %; MPV 8.8 fl. (7.2-11.1); NUCLEATED RBCS 0 /100WBC; PLATELET COUNT* 107 thou/uL (150-400); POLYS 70.6 %; RDW-CV 18.7 % (10.5-14.5); WBC 5.1 thou/uL (4.0-11.0)
[2018-11-21 05:41] LABS: CALCIUM 8.7 mg/dL (8.5-10.1); CREATININE 1.4 mg/dL (0.6-1.3); POTASSIUM 5.8 mmol/L (3.5-5.1)
[2018-11-21 08:16] VITALS: BP 176/67
[2018-11-21 11:52] VITALS: BP 130/64
[2018-11-21 16:15] VITALS: BP 129/79
[2018-11-21 20:00] VITALS: BP 150/89
[2018-11-22] VITALS: BP 177/89
[2018-11-22 04:00] VITALS: BP 133/74
[2018-11-22 08:42] LABS: HEMATOCRIT 35.2 % (42.0-52.0); HEMOGLOBIN 11.2 gm/dL (14.0-18.0); MCHC 31.7 g/dL (28.0-37.0); MCV 82.1 fL (80.0-100.0); MPV 8.2 fl. (7.2-11.1); NUCLEATED RBCS 0 /100WBC; PLATELET COUNT* 116 thou/uL (150-400); RBC 4.29 mil/uL (4.50-6.00); RDW-CV 19.2 % (10.5-14.5); WBC 8.3 thou/uL (4.0-11.0)
[2018-11-22 08:54] LABS: ALBUMIN 3.2 g/dL (3.4-5.0); CALCIUM 9.1 mg/dL (8.5-10.1); CREATININE 1.5 mg/dL (0.6-1.3); POTASSIUM 5.2 mmol/L (3.5-5.1); TOTAL BILIRUBIN 0.4 mg/dL (<0.1-1.0); TOTAL PROTEIN 6.9 g/dL (6.4-8.2)
[2018-11-22 08:57] VITALS: BP 136/80
[2018-11-22 09:25] LABS: ABSOLUTE BASOPHILS 0.1 thou/uL (0.0-0.2); ABSOLUTE EOSINOPHILS 0.2 thou/uL (0.0-0.7); ABSOLUTE LYMPHOCYTES 0.4 thou/uL (0.8-5.3); ABSOLUTE MONOCYTES 0.8 thou/uL (0.0-1.2); ABSOLUTE NEUTROPHILS 6.7 thou/uL (1.6-8.1)
[2018-11-22 09:26] LABS: MICROCYTES 2+; PLATELET ESTIMATE DECREASED
[2018-11-22 11:43] VITALS: BP 152/86
[2018-11-22 15:19] VITALS: BP 148/78
--- NOTE | 2018-11-22 19:12 | EEG ---
[address] [address] EEG STUDY REPORT Name: AARTI MURRELLGIRMA Recio Room: [address] IN M.R.#: [id number] Admission: 11/19/18 Attend Phys: Jeremiah Deng Discharge: Date of : 42 Report #: [id number] THIS REPORT FOR: //name// CC: DARLYN physician/PCP George Olea DATE OF SERVICE: 11/20/2018 This patient is being evaluated for altered mental status. EEG was done by placing the electrodes by standard 10-20 system of electrode placement. Both referential and sequential montages were used for recording. The background activity appeared to be about 8 Hz and 30 microvolts. It is intermixed with significant amount of theta range slowing on both sides. Photic stimulation was unremarkable. Throughout the record, no active epileptiform activity was noticed. IMPRESSION: Moderately abnormal EEG because it is intermixed with theta range slowing on both sides. That is a nonspecific abnormality which can occur with dementia, encephalopathy, effect of psychotropic medication, etc. Clinical correlation is recommended. <ELECTRONICALLY SIGNED> By: Reza Winter MD 11/22/18 1912 0822 [id number] Winter MD /nt
--- NOTE | 2018-11-22 19:12 | CON ---
[address] [address] CONSULTATION Name: LAINE MURRELL Room: [address] IN M.R.#: [id number] Admission: 11/19/18 Attend Phys: Jeremiah Deng Discharge: Date of : 42 Report #: [id number] THIS REPORT FOR: //name// CC: DARLYN physician/PCP George Olea DATE OF SERVICE: 11/21/2018 HISTORY OF PRESENT ILLNESS: This is a 78-year-old male patient who is not able to provide a reliable history because the patient looks confused. I tried to call the son twice on the number I have in the chart, but that indicates the number is not in service. The patient is admitted with altered mental status. He said he had a history of stroke about 1-2 years ago, I do not have any records of that. He feels better than yesterday. Son brought him because he was more confused than his baseline. That is all the history I can get. REVIEW OF SYSTEMS: Indicate he has a history of CVA. He said he is still weak on the left side. There is some question of urinary tract infection in this patient and he was finishing the antibiotics. He has a history of back surgery, knee replacement, atrial fibrillation, hypertension, diabetes, stroke, C-spine injury, brain hemorrhage, knee replacement, question of seizure, pacemaker, chronic wounds, kidney disease, COPD. PAST MEDICAL HISTORY: Positive for stroke in the left side. I do not have the records. FAMILY HISTORY: Negative for early age stroke. SOCIAL HISTORY: He says he does not drink any alcohol. PHYSICAL EXAMINATION: Indicate he is alert. He could not tell me what month it is. His speech looks intact. His memory and fund of knowledge is diminished. Cranial nerve examination is difficult to carry out. He did not cooperate with visual field examination, but his facial looks okay. He is weak in the left upper and left lower extremity. His pulses are difficult to feel. He did poorly on the position sense on the left side. No respiratory difficulty was noticed. His cardiac examination, apparently he gives a history of atrial fibrillation. Blood pressure is 176/77, pulse is 77, temperature is 97.4. LABORATORY DATA: His white count is 5.1. Urine does indicate that it is unremarkable. IMPRESSION AND PLAN: I am not sure what the etiology of this patient's symptom is. I need to talk to the patient's son to see how convincing the history of seizure is. I need to talk to him to find out what his mental status is before giving further recommendation. We [place] need [place] [address] CONSULTATION Name: LAINE MURRELL Room: [address] IN .R.#: [id number] Admission: 11/19/18 Attend Phys: Jeremiah Deng Discharge: Date of : 42 Report #: [id number] be and how much workup has been done in the past. I will continue to make an effort to reach the patient's son and decide about his further management after that. Thank you very much for this referral and if you have any questions, please feel free to contact me. <ELECTRONICALLY SIGNED> By: Reza Winter MD 11/22/18 [id number] Winter MD /nt
[2018-11-22 20:00] VITALS: BP 126/74; BP 181/106
[2018-11-22 23:06] LABS: GLYCOHEMOGLOBIN (HGB A1C) 5.6 % (4.8-5.6)
[2018-11-23 00:31] VITALS: BP 162/88
[2018-11-23 08:00] VITALS: BP 114/62
[2018-11-23 17:08] VITALS: BP 92/59
[2018-11-23 19:30] VITALS: BP 117/64
[2018-11-23 20:08] VITALS: BP 92/59
== END 2018-11-23 20:51 | DRG 682 ==
LOC: M.ERS 08:54 → M.TBA-ER 10:39 → M.2W 10:39 → M.ORTHSURG 11-22 23:01
PROVIDERS: Family Medicine; Internal Medicine; ADMIT Internal Medicine
DX: N17.9 Acute kidney failure, unspecified (principal); G93.41 Metabolic encephalopathy; E44.0 Moderate protein-calorie malnutrition; Z96.653 Presence of artificial knee joint, bilateral; I48.91 Unspecified atrial fibrillation; M10.9 Gout, unspecified; N18.3 Chronic kidney disease, stage 3 (moderate); J44.9 Chronic obstructive pulmonary disease, unspecified; I25.10 Atherosclerotic heart disease of native coronary artery without angina pectoris; E11.22 Type 2 diabetes mellitus with diabetic chronic kidney disease; E78.00 Pure hypercholesterolemia, unspecified; I12.9 Hypertensive chronic kidney disease with stage 1 through stage 4 chronic kidney disease, or unspecified chronic kidney disease; E87.5 Hyperkalemia; E11.649 Type 2 diabetes mellitus with hypoglycemia without coma; Z79.84 Long term (current) use of oral hypoglycemic drugs; Z68.31 Body mass index [BMI] 31.0-31.9, adult; Z86.73 Personal history of transient ischemic attack (TIA), and cerebral infarction without residual deficits; Z95.0 Presence of cardiac pacemaker; Z88.6 Allergy status to analgesic agent; Z88.1 Allergy status to other antibiotic agents; Z83.3 Family history of diabetes mellitus

== ENCOUNTER 2018-11-23 17:51 | Inpatient (IN) | payer MEDICARE, BC ==
[~2018-11-23] VITALS: Ht 182.9 cm; Wt 100.2 kg
[~2018-11-23 17:51] MED LIST changes: +FIBER0.52 G1 PO; +NORCO 5-325 TA1 EACH PO; +SYNTHROID100 MC1 PO
[2018-11-23 21:00] VITALS: BP 117/67
--- NOTE | 2018-11-24 03:13 | NUR ---
ASSUMED CARE AT 2100 WHEN PATIENT ADMITTED INTO ROOM 333 FROM JOINT/SPINE. UP WITH MAX 2 ASSIST, GAIT BELT, WALKER AND CUEING. TAKES A FEW PILLS AT A TIME WHOLE WITH WATER. DROWSY DURING ASSESSMENT, BUT EASILY AROUSES TO VERBAL STIMULI. HAS LEFT SIDED WEAKNESS FROM OLD CVA. HAS DIFFICULTY GRASPING ANYTHING WITH EITHER HAND. VOIDED PER URINAL, NURSE POSITIONED AND EMPTIES URINAL. U/A COLLECTED WTIH FIRST VOID. BLADDER SCANNED AFTER VOID, 0 ML RESIDUAL. RT 2ND TOE REMOVED PRIOR. HAS WOUND ON THE BOTTOM OF THE BALL OF HIS FOOT, MIPILEX DRESSING OCCLUSIVE. HAS TWO WOUNDS ON THE TOP OF HIS RT FOOT, BOTH COVERED WITH FOAM. HAS WOUND ON THE BOTTOM AT THE BALL OF HIS LEFT FOOT, COVERED WITH MIPILEX, DRESSING OCCLUSIVE. DENIES PAIN. TURNS Q2H WITH ASSIST. SCROTUM PINK, COCCYX RED, MOISTURE BARRIER APPLIED TO BOTH. ASSESSMENT COMPLETE, MED REC COMPLETED. ORDERS RECEIVED. CALL LITE IN REACH. BED ALARM ON. HOURLY ROUNDS CONTINUE. ON. HOURLY ROUNDS CONTINUE.
[2018-11-24 03:19] LABS: URINE BILIRUBIN NEGATIVE (Negative); URINE BLOOD 1+ (Negative); URINE CLARITY CLEAR; URINE COLOR YELLOW; URINE GLUCOSE-RANDOM NEGATIVE (Negative); URINE KETONES NEGATIVE (Negative); URINE PROTEIN NEGATIVE (Negative); URINE UROBILINOGEN 0.2 E.U./dl (0.2-1.0)
[2018-11-24 04:32] LABS: URINE LEUKOCYTES-REFLEX 2+ (Negative); URINE NITRITE-REFLEX POSITIVE (Negative)
[2018-11-24 04:42] LABS: BACTERIA-REFLEX >30 Many /HPF (None Seen); CASTS None Seen /LPF (None Seen); CRYSTALS None Seen /LPF (None Seen); MUCUS 0-3 Light strn/LPF (None Seen); SQUAMOUS 0-3 Few /LPF (0-3); URINE WBC-REFLEX >25 Many /HPF (0-5); WBC CLUMPS Few (None Seen)
--- NOTE | 2018-11-24 05:38 | NUR ---
SLEPT MOST OF THE NIGHT. ASKED TO BE TURNED ONCE AND ASSITED WITH TURNS THROUGH THE NIGHT. VOIDED ONCE PER URINAL, U/A SENT, CULTURE SETUP PER LAB REPORT. NO C/O PAIN. BED ALARM ON. CALL LITE IN REACH. HOURLY ROUNDS CONTINUE.
[2018-11-24 07:56] VITALS: BP 92/45
--- NOTE | 2018-11-24 16:33 | NUR ---
PT HAS BEEN UP TO W/C TODAY AND TRANSFERRS WITHMAX ASSIST OF 2 WITH GAITBELT AND QUEING. PT ALERT AND ORIENTATED AND APPROPIATE. O2 AT 2L PER NC.PT HAS USES URINAL WITH ASSIST WITH PLACEMENT. PT IS ENCOURAGED TO DRINK PO FLUIDS FOR GOOD OUTPUT.PT NOW TAKING ANTIBIOTIC FOR UTI.PT IS ASSISTED WITH FEEDING SELF MEALS AND WAS ABLE TO FEED SELF BETTER AT LUNCH WITH USE OF ADAPTIVE FORK. DRESSINGS TO FEET DRY AND INTACT WITH NO DRAINAGE NOTED.SON HERE THIS AFTERNOON.
[2018-11-24 17:23] VITALS: BP 155/61
[2018-11-24 19:49] VITALS: BP 126/63
--- NOTE | 2018-11-25 01:49 | NUR ---
ASSUMED CARE @ 1944-11/24-SAT.APPEARS SLEEPING ON HIS LEFT SIDE IN BED.HOB UP.O2 ON @ 2L/NC.BED ALARM ALREAdy ON @ 1944.AWAKENED @ 2054 FOR HS MEDS.MEDS GIVEN WHOLE ONE @ A TIME W/ APPLE SAUCE.HEELS OFF BED @ 2104.DOES NOT USE CALL LIGHT.SHOUTS "HELP"IF NEEDS URINAL.ON HOURLY ROUNDS
--- NOTE | 2018-11-25 05:25 | NUR ---
SLEEPING SINCE 194.TOOK ALL ORANGE JUICE 120 ML W/ APPLE SAUCE GIVEN W/ HS MEDS HS SNACKS.USED URINAL X2.INC URINE X2.URINE ACCIDENTS X2.CAM CARE X3.ANTI FUNGAL CREAM APPLIED TO RED-PERINEAL AREAS AFTER EACH CAM CARE.
[2018-11-25 08:03] VITALS: BP 108/60
--- NOTE | 2018-11-25 17:52 | NUR ---
ASSUMMED CARE OF PT AT 0730, PT ALERT, FORGETFUL AT TIMES, TRANSFERS WITH MOD ASSIST OF 2, GB WALKER CUEING, FED ALL MEALS, PT VOIDED 600CC PER URINAL THIS AM, AND A LARGE AMOUNT WHEN USING COMMODE, SCROTAL/COCCYX AREA RED, ANTIFUNGAL OINTMENT APPLIED, TAKES PILLS WELL IN APPLESAUCE, PT ENCOURAGED TO COUGH AND DEEP BREATHE, O2 ON AT 2 LITERS, UP IN RECLINER FOR BREAKFAST AND LUNCH, PT STIFF AND DIFFICULT TO MOVE AT TIMES, TURNS WITH ASSIST IN BED,REPOSTIONED EVERY 2 HOURS, DRESSINGS CHANGED TO FOOT WOUNDS, BLEEDING NOTED FROM LEFT METATARSAL WOUND. HOURLY ROUNDING COMPLETED ASSESSMENT COMPLETE, WILL CONTINUE TO MONITOR.
[2018-11-25 19:41] VITALS: BP 83/42
--- NOTE | 2018-11-26 03:34 | NUR ---
ASSUMED CARE @ 1927-11/25-MONDAY.AWAKE IN BED.NETWORK DEVELOPER GAVE PATIENT SOFT TOUCH CALL LIGHT @ 1927.02 2L/NC CONTINOUS.HOPB UP.HEELS OFF BED.BED ALARM ON ALREADY @ 1927.SLLEPING @ 2111 BUT AWAKENED FOR HS MEDS.TAKES HS MEDS W/ APPLE SAUCE & ORANGE JUICE.NEW MEPILEX DRSG APPLIED TO PINK AREA DORSAL ASPECT RIGHT FOOT @ 2204.DRY @ 2199.REFUSED FOR NETWORK DEVELOPER TO CLEAN DENTURES @ .ON HOURLY ROUNDS. NETWORK DEVELOPER DOING ODD HOUR ROUNDS.
--- NOTE | 2018-11-26 05:35 | NUR ---
SLEEPING SINCE 2111.INC URINE X1.URINE ACCIDENT X1.USED URINAL X1.CAM CARE X1.ANTIFUNGAL CREAM APPLIED TO PINK-SCROTUM,GROINS & COCCYX AREA AFTER CAM CARE.TOOK ALL APPLE SAUCE GIVEN W/ HS MEDS & ALL 120 ML ORANGE JUICE HS SNACK.CALLED TO USE URINAL @ 0300.VOIDED-525 ML.BLADDER SCAN FOR PVR-64 ML ONLY.
[2018-11-26 06:00] VITALS: BP 117/68
--- NOTE | 2018-11-26 07:41 | NUR ---
BP @ 1-83/42.BP CHECKED @ 0600-117/68-71.SEE PAIN MANAGEMENT @ 06.LAST BM 11/19.SMALL BM 11/25-MONDAY.PER PATIENT NORMAL BM PATTERN Q 2-3 DAYS.TAKES PRN MIRALAX @ HOME & EFFECTIVE.REFUSED DUL SUP @ 0600.
[2018-11-26 08:00] VITALS: BP 129/67
[2018-11-26 10:06] LABS: CALCIUM 8.9 mg/dL (8.5-10.1)
--- NOTE | 2018-11-26 10:18 | NUR ---
SW met with pt to complete initial assessment, introduce self, and SW role on inpt rehab unit. Pt alert after awakening upon SW entering the room, and oriented. Pt lives at home with son and discussed his adopted dtr (actually granddtr) Carlie who is 16 lives in the home as well. Pt has hx of SNF at [facility] and [facility]. Pt possibly has 28 days available according to [facility]. Pt has hx with [facility] and was active with them prior to hospitalization. Pt was previously SBA with transfers; pt family assisted with pt ADLs. Pt has a power wc, wc, RW, CPAP (that he doesn't use apparently), grab bars, ramp, life line, and hx of wound vac. SW to continue to follow to assist with safe dc planning.
--- NOTE | 2018-11-26 12:56 | NUR ---
ASSUMMED CARE OF PT AT 0730, PT ALERT AND ORIENTED, SLIGHTLY FORGETFUL AT TIMES, PT TRANSFER OF 2, GB WALKER CUEING, STIFF AT TIMES, PT NEEDS ASSIST TO EAT, ARMS WEAK AND HAS DIFFICULTY SCOOPING FOOD AND BRINGING TO MOUTH, HAS SPECIAL SILVERWARE, AND PLATE GUARD BUT STILL NEEDS MUCH ASSIST, TAKES MEDS WHOLE IN APPLESAUCE, DENIES PAIN THIS SHIFT, DRESSING CHANGES COMPLETED ON FEET, SMALL AREA ON RIGHT ELBOW NOTED TO BE BLEEDING, MEPILEX APPLIED, PT NPO AT [address] THIS PM, PT LUNGS DIMINISHED, ENCOURAGED TO COUGH AND DEEP BREATHE, O2 AT 2 LITERS, SATS AT 100%. HAD LUNCH IN DININGROOM, PARTICIPATED IN ALL THERAPIES, HOURLY ROUNDING COMPLETED, PT REPOSTIONED EVERY 2 HOURS, ASSESSMNET COMPLETE, WILL CONTINUE TO MONITOR.
--- NOTE | 2018-11-26 14:25 | NUR ---
Nutrition: Admitted for recurrent UTIs, AMS. Cognition better. Pt needs full eating assistance. Eating with good appetite. Albumin 3.2, BG ok, BUN 50, cr 2. Wt: 221#. CHO controlled diet. Will follow weekly on Rehab unit. Low risk at this time.
--- NOTE | 2018-11-26 18:40 | NUR ---
PATIENT RESTING UP IN CHAIR. PATIENT DENIES ANY PAIN. PATIENT IS UP WITH MODERATE ASSIST WITH GAIT BELT AND WALKER. PATIENT HAS GOOD APPETITE, BUT DOES NEED ASSISTANCE WITH EATING. PATIENT USES URINAL WITH ASSIST. PATIENT WENT FOR CT SCAN THIS AFTERNOON WITHOUT INCIDENT. PATIENT DENIES ANY NEEDS AT THIS TIME. CALL LIGHT WITHIN REACH. WILL CONTINUE TO MONITOR.
[2018-11-26 20:00] VITALS: BP 98/57
--- NOTE | 2018-11-27 05:22 | NUR ---
ASSUMED PT CARE AT 1930. PT ALERT AND ORIENTED, POLITE AND COOPERATIVE WITH CARES. PT SITTING UP IN RECLINER WATCHING TELEVISION AT SHIFT CHANGE. PT FED MEDS WHOLE IN APPLESAUCE AND THEN FED REMAINDER OF APPLESAUCE. PT DRANK SIPS OF WATER. DENIES PAIN. ON 2L 02 PER NC. PT TRANSFERRED TO BED WITH ASSIST OF 2, GAIT BELT, WALKER AND CUEING. Q2 TURNS OVERNIGHT. USED CALL LIGHT TO CALL FOR URINAL. URINAL PLACED, HELD AND EMPTIED BY RN. PT HAS VARIOUS MEPLEXES ON FEET AND ON RIGHT ELBOW. NO STOOL THIS SHIFT. PT PRESSED CALL LIGHT SEVERAL TIMES BY ACCIDENT. HOURLY ROUNDING IN PROGRESS, WILL CONTINUE TO MONITOR.
[2018-11-27 07:00] VITALS: BP 128/73
[2018-11-27 15:47] VITALS: BP 134/66
[2018-11-27 15:55] VITALS: BP 134/66
--- NOTE | 2018-11-27 17:12 | NUR ---
ASSUMED CARE AT 0730. ALERT ORIENTED PLEASANT COOPERATIVE. HX OF ALTERED MENTAL STATUS WEAKNESS, TRANSFERS WITH 1-2 ASSIST G BELT AND WALKER FOR SAFETY FROM BED TO RECLINER FOR BREAKFAST. PARTICIPATING IN THERAPIES AND HAS BEEN UP SINCE 0800. DID C/O BURNING SCROTAL AREA AND INNER THIGHS. HAS REDNESS COCCYX AREA NO OPEN AREAS MOISTURE BARRIR APPLED X 2 TODAY. NEEDS FED BUT ATTEMPTS TO FEED SELF WITH BUILT UP UTENSIL PLATE GUARD. APPETITE GOOD TAKES MEDS 1-2 AT A TIME WITH APPLESAUCE. TYLENOL 2 TABS PO FOR C/O PAIN MENTIONED WITH SOME RELEF NOTED. VOIDS PER URINAL WITH ASSIST OF STAFF PLACING URINAL. PT. DID C/O DIZZINESS DURING AFTERNOON P.T. VS WERE WNL. O2 SAT WAS LOW BUT HANDS WERE COLD WARMTH APPLIED AND SAT WAS 96% ON 2L/M PER N/C. RESTED IN BED AT 1530 STATES HE FELT NO FURTHER DIZZINESS.
[2018-11-27 20:00] VITALS: BP 102/64
--- NOTE | 2018-11-28 06:52 | NUR ---
ASSUMED CARES AT 1920. ALERT AND ORIENTED, PLEASANT. ON O2 2L NC. TOOK PILLS WHOLE IN APPLESAUCE. PT NEEDS ASSIST WITH URINAL PLACEMENT AND EMPTYING. VOIDING GOOD AMOUNTS BUT URINE CLOUDY. PT C/O ITCHY FLARE UP OF DERMATITIS TO FOREHEAD/FACE. SAYS THAT USES HYDROCORTISONE AT HOME. WOULD PREFER TO USE HOME MED. TOLD PT TO GO AHEAD AND BRING IN MED FOR DR TO APPROVE USE. URINE CX FINAL RESULTS SHOW ECOLI/ESBL. ISOLATION CART ORDERED. WILL HAVE DAY RN F/U WITH UROLOGY ABOUT RESULTS THEY HAVE BEEN SEEING HIM. PT SLEPT WELL OTHERWISE. CALL LIGHT IN REACH AND BED ALARM ON.
[2018-11-28 10:21] VITALS: BP 79/49
--- NOTE | 2018-11-28 14:41 | NUR ---
PATIENT WAS SEEN BY DR FOY, CULTURE AND SEN VIEWED. ORDER FOR IV ABX. CONSULTS TO DR SOLORIO, AND DR MARTINI. PATIENT'S SON HERE VOICE CONCERN ABOUT HIS DAD GETTING KEPPRA, HE THINKS IT MAKES HIS DAD TIRED.
--- NOTE | 2018-11-28 17:23 | NUR ---
SW met with pt and reviewed team conference summary and plan for pt to remain on rehab unit one more week with team to reassess pt length of stay during team conference next Wednesday 12/06. Pt okay with plan. SW to contact pt son to review as well and SW to continue to follow to assist with safe dc planning.
[2018-11-28 20:00] VITALS: BP 112/62
--- NOTE | 2018-11-28 23:15 | NUR ---
ASSUMED CARE AT 1930. PATIENT RESTING IN RECLINER. SALINE LOCK TO LT FA INTACT. TAKES PILLS WHOLE WITH APPLESAUCE. O2 2L/NC. UP WITH MAX ASSIST OF 2, HAS TROUBLE WALKING BACKWARDS. NEEDS LIFTING HELP, NEEDS HELP GETTING LLE INTO BED. VOIDS PER URINAL, NURSING PLACES AND EMPTIES URINAL. VOIDS IN LARGE AMOUNTS CLOUDY URINE. ON ISOLATION FOR ESBL E COLI OF URINE. ON IV ANTIBIOTICS. STATES AT HOME, HE TAKES A "VICODIN" THREE TIMES A DAY. INSTRUCTED THAT HE NEEDS TO ASK FOR PAIN MEDS THEY ARE NOT SCHEUDLED BUT ORDERED PRN. VERBALIZED UNDERSTANDING. AF MOISTURE BARRIER APPLIED. HAS SOFT TOUCH CALL LITE. DRESSINGS TO RT AND LT FEET C/D/I. HOURLY ROUNDS CONTINUE. BED ALARM ON. CALL LITE IN REACH.
[2018-11-29 05:13] LABS: ALBUMIN 3.1 g/dL (3.4-5.0); CALCIUM 9.2 mg/dL (8.5-10.1); CREATININE 1.6 mg/dL (0.6-1.3); POTASSIUM 5.3 mmol/L (3.5-5.1); TOTAL BILIRUBIN 0.3 mg/dL (<0.1-1.0); TOTAL PROTEIN 6.5 g/dL (6.4-8.2)
--- NOTE | 2018-11-29 05:37 | NUR ---
RESTED QUIETLY MOST OF THE NIGHT. VOIDED TWICE PER URINAL. NURSING POSITIONS URINAL AND EMPTIES. ASSISTED WITH TURNS. MEDICATED AT HS FOR PAIN, NO FURTHER C/O PAIN. HOURLY ROUNDS CONTINUE. BED ALARM ON. SOFT TOUCH CALL LITE IN REACH.
[2018-11-29 08:00] VITALS: BP 151/58
[2018-11-29 20:23] VITALS: BP 113/71
--- NOTE | 2018-11-30 02:24 | NUR ---
ASSUMED CARE @ 1921-11/29-.SITS IN RECLINER @ BEDSIDE WATCHIUNG TV 2L/NC.ISOLATION OBSERVED.TWO PERSON TO TRANSFER TO BSC.URINE RAN ON FLOOR. HAD LARGE BM PER BSC @ 2019.BED ALARM PUT ON @ 2029.HOB UP.HEELS OFF BED @ 2029.NO BLOOD RETURN FROM SALINE LOCK @ 2144 BUT FLUSHES GOOD.ALL HS MEDS GIVEN W/ APPLE SAUCE.ANTI FUNGAL CREAM APPLIED TO PINK COCCYX X2 AFTER CAM CARE.AT 0-O2 TUBING CHANGED TO ONE W/ FOAM PADDING ON EARS.BEHIND RIGHT EAR-GETTING RED.DRY @ 199-11/30-MONDAY.
--- NOTE | 2018-11-30 05:32 | NUR ---
SLEEPING SINCE 2199.TOOK ALL APPLE SAUCE HS SNACK GIVEN W/ HS MEDS.USED BSC XC1 FOR BM & URINE.USED BEDPAN X1 BUT UNABLE TO HAVE BM.USED URINAL X1 W/ ASSIST @ 0400.CAM CARE X2 FOLLOWED W/ ANTI FUNGAL CREAM TO PINK GROINS, SCROTUM & COCCYX AREAS.
--- NOTE | 2018-11-30 08:43 | NUR ---
WOUND CARE NOTE: CONSULT RECEIVED FOR WOUNDS ON BILAT FEET. PATIENT KNOWN TO ME FROM INPATIENT HOSPITAL STAY. PRESENTS WITH BILATERAL DIABETIC FOOT ULCERS. RIGHT 1ST MET HEAD, PLANTAR SURFACE: FULL THICKNESS ULCERATION, APPEARS TO BE HEALING. CALLUS NOTED TO CAM-WOUND. WOUND BED IS MOIST, RED, DRAINING SMALL AMOUNTS OF SEROSANGUINEOUS DRAINAGE. WOUND MEASURES 0.2X0.3X0.3. CLEANSED WITH WOUND CLEANSER, PATTED DRY. APPLIED AQUACEL AG TO WOUND BED THEN SECURED WITH BORDERED FOAM. LEFT 1ST MET. HEAD, PLANTAR SURFACE: FULL THICKNESS ULCERATION, APPEARS TO BE HEALING. CALLUS NOTED TO CAM-WOUND. WOUND BED IS MOIST, RED, DRAINING SANGUINEOUS DRAINAGE. WOUND MEASURES 0.6X0.5X0.4. CLEANSED WITH WOUND CLEANSER, PATTED DRY. APPLIED AQUACEL AG TO WOUND BED THEN SECURED WITH BORDERED FOAM. RIGHT DORSUM OF FOOT PRESENTS WITH BLANCHABLE REDNESS, HAS HAD THIS SINCE INPATIENT STAY. BELIEVE THIS IS FROM PATIENT'S SHOE RUBBING AGAINST THE TOP OF HIS FOOT WHEN HE WALKS. NO OPENING, JUST IRRITATION. BILATERAL BUTTOCKS/SACRUM/COCCYX WITH BLANCHABLE REDNESS. BELIEVE TO BE MOISTURE ASSOCIATED DERMATITIS. CLEANSED THEN APPLIED ANTIFUNGAL BARRIER OINTMENT. EDUCATED PATIENT ON FINDINGS. RECOMMEND TURN Q2 HOURS DAILY DRESSING CHANGES TO FEET ENCOURAGE GOOD NUTRTION/HYDRATION FOR WOUND HEALING TIGHT BLOOD GLUCOSE CONTROL ATTEMPT TO OFFLOAD SKIN BREAKDOWN ON FEET LIMIT LAYERS OF LINEN UNDER PATIENT
[2018-11-30 11:18] VITALS: BP 115/67
--- NOTE | 2018-11-30 18:57 | NUR ---
ALERT AND ORIENTED X 4, MAX ASSIST OF TWO FOR TRANSFERS. NO COMPLAINTS.
[2018-11-30 20:00] VITALS: BP 106/63
--- NOTE | 2018-12-01 00:55 | NUR ---
ASSUMED CARE AT 1930. PATIENT IN RECLINER SLEEPING, DAY RN ASSISTED THIS RN WITH TRANSFERRING PATIENT FROM RECLINER TO BED. NEEDS MUCH CUEING AND HAS TROUBLE STANDING TALL ENOUGH FOR SAFE TRANSFERS. NEEDS HELP GETTING LT LEG INTO BED. SALINE LOCK TO LT FOREARM, FLUSHES WILL. ASSISTED WITH TURNS. AF MOISTURE BARRIER APPLIED TO BUTTOCKS. DRESSINGS TO FEET C/D/I. TAKES PILLS WHOLE IN APPLESAUCE. NO C/O PAIN. HOURLY ROUNDS CONTINUE. BED ALARM ON. CALL LITE IN REACH.
--- NOTE | 2018-12-01 05:58 | NUR ---
RESTED QUIETLY MOST OF THE NIGHT. ASSISTED WITH TURNS. VOIDED PER URINAL LARGE AMOUNTS, NURSING POSITIONED URINAL AND EMPTIED. PATIENT REQUESTED PAIN MED, COMPLAINED THAT HIS MEDICINE WAS NOT SCHEDULED LIKE HE HAS BEEN HAVING FOR YEARS FROM HIS PERSONAL DOCTOR. THIS NURSE INSTRUCTED PATIENT THAT THIS SCHEDULE WAS PRESENTED TO PHYSICIAN AT TIME OF ADMISSION TO REHAB, BUT PHYSICIAN ONLY WANYED PRN PAIN MED, NOT SCHEDULED. THIS NURSE EXPLAINED THAT PATIENT COULD HAVE THE PAIN MEDS EVERY 4 HOURS WHICH WOULD TOTAL 6 DOSES A DAY, WHICH WOULD BE TWICE WHAT HE WAS ASKING ABOUT, BUT PATIENT CONTINUED TO BE UPSET THAT HE HAD TO ASK FOR MEDS. HE WOULD PREFER PAIN MEDS JUST BE GIVEN AT MORNING NOON AND NIGHT. AGAIN REITERATED THAT HE COULD ASK FOR PAIN MEDS. HOURLY ROUNDS CONTINUE. BED ALARM ON. CALL LITE IN REACH. PATIENT VERBALIZED UNDERSTANDING, BUT CONTINUED TO BE UPSET THAT HE HAD TO ASK FOR HIS PILLS.
[2018-12-01 07:00] VITALS: BP 132/77
--- NOTE | 2018-12-01 07:50 | NUR ---
CHANGED DIET REGULAR DISCUSSED WITH OTHER RN, GERALD, SHE STATED THAT DR ECHOLS IS OKAY WITH THIS CHANGE AND THE PT HAS NOT REQUIRED INSULIN THIS ADMISSION.
[2018-12-01 08:25] VITALS: BP 132/77
[2018-12-01 20:00] VITALS: BP 94/55
[2018-12-02 05:17] LABS: ABSOLUTE EOSINOPHILS 0.3 thou/uL (0.0-0.7); ABSOLUTE LYMPHOCYTES 1.1 thou/uL (0.8-5.3); ABSOLUTE MONOCYTES 0.4 thou/uL (0.0-1.2); ABSOLUTE NEUTROPHILS 3.7 thou/uL (1.6-8.1); BASOPHILS 0.8 %; EOSINOPHILS 5.3 %; HEMATOCRIT 31.2 % (42.0-52.0); HEMOGLOBIN 10.1 gm/dL (14.0-18.0); MCH 26.5 pg (26.0-34.0); MCHC 32.5 g/dL (28.0-37.0); MCV 81.7 fL (80.0-100.0); MPV 8.8 fl. (7.2-11.1); NUCLEATED RBCS 0 /100WBC; PLATELET COUNT* 135 thou/uL (150-400); POLYS 65.9 %; RBC 3.82 mil/uL (4.50-6.00); WBC 5.5 thou/uL (4.0-11.0)
[2018-12-02 05:21] LABS: CALCIUM 8.8 mg/dL (8.5-10.1); CREATININE 1.5 mg/dL (0.6-1.3); POTASSIUM 4.9 mmol/L (3.5-5.1)
--- NOTE | 2018-12-02 05:43 | NUR ---
ASSUMED CARES AT 1920. ALERT AND ORIENTED. PLEASANT. CONTACT ISOLATION FOR ESBL. ON O2 2L NC. IV SALINE LOCK TO LEFT FOREARM. TAKES PILLS WHOLE IN APPLESAUCE. PAIN MEDS GIVEN NEEDED. MAX ASSIST X 2 PERSON FOR SAFETY. GAIT BELT AND WALKER. RN ASSISTED WITH USE OF URINAL. SLEPT SOME. CALL LIGHT IN REACH AND BED ALARM ON.
[2018-12-02 07:59] VITALS: BP 117/67
--- NOTE | 2018-12-02 16:32 | NUR ---
ASSUMED CARE AT 0730. ALERT ORIENTED PLEASANT COOPERATIVE. HX OF WEAKNESS ALTERED MENTAL STATUS. PT. IS IN ISOLATION FOR HX OF ESBL URINE ON IV ANTIBIOTICS BID FOR TX OF UTI. URINE CLEAR RELL NO ODOR IN URINAL VOIDED 600 CCS AT 1600 ASSISTED WITH PLACEMENT OF URINAL. TRANSFERS WITH MIN MOD ASSIST G BELT WALKER FROM BED TO RECLINER AND INTO BED THIS AFTERNOON TURNED ON LEFT SIDE. HAS BEEN UP IN RECLINER SINCE BREAKFAST. FED SELF WITH SET UP AND BUILT UP UTENSILS WITHOUT TOO MUCH DIFFICULTY. TAKES MEDS 1-2 WITH APPLESAUCE THIS A.M. GAVE HYDROCODONE 1 TAB PO THIS A.M. FOR KNEE PAIN PER PT. REQUEST. USES CALL LIGHT APPROPRIATELY FOR ASSISTANCE. DRESSINGS TO L AND RT. FOOT AREAS CHANGED AND PHOTOS TAKEN. APPETITE GOOD.
[2018-12-02 20:00] VITALS: BP 91/49
--- NOTE | 2018-12-03 08:00 | CON ---
[address] [address] CONSULTATION Name: LAINE MURRELL Room: [address] IN M.R.#: [id number] Admission: 11/23/18 Attend Phys: Hipolito Bowie MD Discharge: Date of : 42 Report #: [id number] THIS REPORT FOR: //name// CC: FAM physician/PCP Hipolito Bowie DATE OF SERVICE: 11/29/2018 ATTENDING PHYSICIAN: Robert Gibson MD REASON FOR EVALUATION: Complicated urinary tract infection secondary to multiple resistant organisms, specifically extended spectrum beta-lactamase producing Escherichia coli. HISTORY OF PRESENT ILLNESS: Chart reviewed, patient examined. This is a 78-year-old gentleman I have seen intermittently, has had a longstanding medical issues, diabetes mellitus, has been complicated by vasculopathy, previous strokes, chronic renal insufficiency, was admitted with altered mental status. Evaluation was undertaken including urinalysis and have showed marked pyuria as well as bacteriuria. Culture with growth of Escherichia coli that was multiple resistant including extended spectrum beta lactamase production. He was started on carbapenem. Clinically, he has improved over the course of last 24-48 hours, undergoing rehabilitation as an inpatient. Denies significant pulmonary or gastrointestinal related complaints at this point. ALLERGIES: MORPHINE, CODEINE, AND TETRACYCLINE. CURRENT MEDICATIONS: Include meropenem, allopurinol, hydrochlorothiazide, lisinopril, tamsulosin, fish oil, aspirin, carvedilol, pantoprazole, levothyroxine, atorvastatin, apixaban, baclofen and amitriptyline. PAST MEDICAL HISTORY: Hypertension, atrial fibrillation, diabetes mellitus complicated by vasculopathy, previous stroke, has known coronary artery disease, cardiomyopathy, history of COPD, lower extremity wounds, pacemaker, gout, and bilateral knee replacements. SOCIAL HISTORY: Nonsmoker, no ethanol, no illicit drug use. FAMILY HISTORY: Noncontributory. REVIEW OF SYSTEMS: Otherwise, unremarkable 10-point review of systems with exception of the above. PHYSICAL EXAMINATION: He is seen in the physical therapy gym. GENERAL: He is alert, cooperative, engaged and is chronically ill appearing, [place] [address] CONSULTATION Name: LAINE MURRELL Room: [address] IN [facility]#: [id number] Admission: 11/23/18 Attend Phys: Hipolito Bowie MD Discharge: Date of : 42 Report #: [id number] undernourished. VITAL SIGNS: Temperature 97.6, pulse 70, respirations 20, blood pressure 112/62. SKIN: Warm, dry, he has a rash over his face appears to be eczematous type rash. HEENT: Normocephalic. Extraocular muscles intact. NECK: Supple. LUNGS: Clear to auscultation. Somewhat diminished. HEART: Regular. I do not appreciate any murmur. ABDOMEN: Soft, nontender. GENITOURINARY AND RECTAL: Deferred. LABORATORY DATA: Electrolytes: Sodium 140, potassium 5.3, chloride 106, bicarb is 24, anion gap of 10, BUN and creatinine 64 and 1.6. LFTs unremarkable. Albumin of 3.1. Total protein 6.5. Estimated GFR 42. Urine culture as described above. Escherichia coli in vitro susceptible only to aminoglycosides, carbapenem is susceptible to nitrofurantoin as well as, tetracycline, tricycline. CT abdomen and pelvis performed earlier shows findings consistent with chronic constipation, cholelithiasis with mild gallbladder distention, mild circumferential mural thickening of the urinary bladder and cholecystitis. ASSESSMENT AND PLAN: Complicated urinary tract infection. We will continue the current approach as prescribed. Plan on repeating urinalysis in the next 2-3 days, likely transition to oral antibiotics. I think a couple of options; however, tetracycline, listed as hypersensitivity. Again, given his recurrent UTIs, I think it is preferable to make sure it is well its way to eradication. <ELECTRONICALLY SIGNED> By: Santosh Osman MD 12/03/18 0800 [id number] Osman MD /nt
[2018-12-03 08:11] VITALS: BP 122/56
--- NOTE | 2018-12-03 14:33 | NUR ---
ASSUMED CARE AT 0730. ALERT ORIENTED PLEASANT COOPERATIVE. HX OF WEAKNESS AND PAST AMS. TRANSFERS WITH 1 ASSIST G BELT WALKER FROM BED TO STAND AND AMBULATE TO RECLINER FOR BREAKFAST. O2 ON AT 2L/M PER N/C CONTINOUS. FEEDS SELF WITH BUILT UP UTENSILS AND SET UP. MEDICATED X 1 WITH HYDROCODONE TAB FOR HIP AND KNEE PAIN THIS A.M. PARTICIPATING IN THERAPIES. USES CALL LIGHT APPROPRIATELY FOR ASSIST. VOIDS PER URINAL WITH STAFF ASSIST. SITTING IN RECLINER AT BEDSIDE. IN ISOLATION FOR HX OF ESBL URINE.
[2018-12-03 20:00] VITALS: BP 134/83
[2018-12-03 22:36] LABS: URINE BILIRUBIN NEGATIVE (Negative); URINE BLOOD NEGATIVE (Negative); URINE CLARITY CLEAR; URINE COLOR YELLOW; URINE GLUCOSE-RANDOM NEGATIVE (Negative); URINE KETONES NEGATIVE (Negative); URINE LEUKOCYTES-REFLEX TRACE (Negative); URINE NITRITE-REFLEX NEGATIVE (Negative); URINE PROTEIN NEGATIVE (Negative); URINE SPECIFIC GRAVITY 1.015 (1.005-1.030); URINE UROBILINOGEN 0.2 E.U./dl (0.2-1.0)
[2018-12-03 22:43] LABS: SQUAMOUS 4-10 Moderate /LPF (0-3)
[2018-12-03 22:44] LABS: CASTS None Seen /LPF (None Seen); MUCUS None Seen strn/LPF (None Seen); URINE WBC-REFLEX 0-5 Rare /HPF (0-5)
[2018-12-03 22:45] LABS: BACTERIA-REFLEX None Seen /HPF (None Seen); CRYSTALS None Seen /LPF (None Seen); URINE RBC None Seen /HPF (0-2)
--- NOTE | 2018-12-04 06:08 | NUR ---
ASSUMED CARE AT 1930. ALERT AND ORIENTED. PLEASANT. CONTACT ISOLATION FOR ESBL. ON O2 2L NC. MOD ASSIST WITH GAIT BELT AND WALKER. NEEDS BOOST FROM SIT TO STAND. TOOK PILLS WHOLE IN APPLESAUCE. SALINE LOCK TO LEFT FA. FUNGAL CREAM TO SCROTAL REDNESS. SLEPT OFF AND ON. CALL LIGHT IN REACH AND BED ALARM ON.
[2018-12-04 07:40] VITALS: BP 133/71
--- NOTE | 2018-12-04 18:35 | NUR ---
ALERT AND ORIENTED X 4, UP WITH EXTENSIVE ASSIST OF ONE. WALKS WITH A WALKER TO/FROM THE DINNING AREA. DENIES PAIN OR DISCOMFORT.
[2018-12-04 19:00] VITALS: BP 126/69
--- NOTE | 2018-12-04 20:25 | NUR ---
SITTING UP IN RECLINER WATCHING A [employer] MOVIE ON TV. PAIN MEDICATION GIVEN FOR COMPLAINT OF RIGHT KNEE PAIN. TOOK MEDICATIONS WHOLE TWO AT A TIME WITH APPLESAUCE. 02 NASAL CANNULA AT TWO LITERS. HAS SOFT CALL LIGHT WITHIN REACH.
--- NOTE | 2018-12-05 05:24 | NUR ---
RESTED QUIETLY. NO FURTHER COMPLAINT OF PAIN UNTIL THIS MORNING. VICODIN GIVEN PER REQUEST FOR COMPLAIN OF PAIN IN HIS HIPS. ASSISTED WITH REPOSITIONING THROUGHOUT THE NIGHT. HOURLY ROUNDING IN PROGRESS.
[2018-12-05 08:00] VITALS: BP 144/67
--- NOTE | 2018-12-05 16:21 | NUR ---
SW met with pt and pt son to review team conference summary and plan for pt to continue therapies on in rehab unit one more week with team to reassess pt length of stay during team conference next Monday and then pt to dc home after team Monday, 12/12. Pt somewhat disappointed but agreeable and pt son in agreement with plan as well. Pt son clarified that he does provide total care when needed with ADLs and mobility. Pt to dc home next Monday with family care and [facility] services. Pt and pt son feel pt does not need to wear oxygen...just that the readings show he's low due to pt fingers being cold. Pt and pt son concerned with infection remaining clear. SW to continue to follow to assist with safe dc planning.
--- NOTE | 2018-12-05 16:35 | NUR ---
PATIENT IS UP IN RECLINER. AMBULATES WITH ROLLING WALKER. EXTENSIVE ASSIST WITH STANDING. NO SIGN OF DISTRESS. DENIES PAIN OR DISCOMFORT. O2 AT 2L NC. SON HERE VISITING. CONT. WITH PLAN OF CARE AT THIS TIME.
--- NOTE | 2018-12-05 16:43 | NUR ---
PATIENT HAD PINPOINT AREA ON THE LAU THAT WAS BLEEDING. CLEASNED WITH NS AND COVERED WITH BANDAGE.
[2018-12-05 19:00] VITALS: BP 109/62
--- NOTE | 2018-12-05 20:50 | NUR ---
SITTING UP IN CHAIR WATCHING TV. PAIN MED GIVEN FOR COMPLAINT OF GENERALIZED PAIN RATED "6". TOOK MEDICATIONS WHOLE TWO AT A TIME WITH APPLESAUCE. PROVIDED WITH ROYA HOWELL PER REQUEST. HAS SOFT CALL LIGHT FASTENED TO HIS SHIRT.
--- NOTE | 2018-12-06 06:43 | NUR ---
RESTED QUIETLY. ASSISTED WITH THE URINAL AND REPOSITIONING THROUGHOUT THE NIGHT. NO FURTHER COMPLAINT OF PAIN. HOURLY ROUNDING IN PROGRESS.
[2018-12-06 08:00] VITALS: BP 146/68
--- NOTE | 2018-12-06 16:44 | NUR ---
ASSUMMED CARE OF PT AT 0730, PT ALERT AND ORIENTED, PT TRANSFERS WITH ASSIST OF 1, GB WALKER, CUEING, PT COMPLAINS OF PAIN AND MEDICATED PER ORDER, WOUND CARE DONE ON BILATERAL FEET, SMALL SKIN TEAR TO RIGHT ELBOW, MEPILEX APPLIED, PT VOIDS PER URINAL IN LARGE AMOUNTS, TO DININGROOM, ABLE TO FEED SELF, RED/RASH AREA BETWEEN BUTTOCK FOLD, BARRIER OINTMENT APPLIED, HOURLY ROUNDING COMPLETED, PARTICIPATED IN ALL THERAPIES, ASSESSMENT COMPLETE, WILL CONTINUE TO MONITOR.
[2018-12-06 19:25] VITALS: BP 119/65
--- NOTE | 2018-12-07 05:10 | NUR ---
ASSUMED CARE OF PT AT 1900 PT ALERT AND ORIENTED VSS. PT AMBULATED TO THE BR WITH 1 ASSIST BG AND WALKER. PT HAD PAIN MEDS ONCE THEN SLEPT THROUGH THE NIGHT. WILL CONTINUE PLAN OF CARE.
--- NOTE | 2018-12-07 06:58 | NUR ---
WOUND CARE NOTE: REASSESSMENT OF BILATERAL DIABETIC FOOT ULCERS. RIGHT 1ST METATARSAL HEAD, PLANTAR SURFACE: FULL THICKNESS ULCERATION. APPEARS TO BE HEALING. CALLUS NOTED TO CAM-WOUND. WOUND BED IS MOIST, RED, DRAINING SMALL AMOUNTS OF SEROSANGUINEOUS DRAINAGE. WOUND MEASURES 0.2X0.3X0.3. CLEANSED WITH WOUND CLEANSER, PATTEDDRY. APPLIED AQUACEL AG TO WOUND BED THEN SECURED WITH BORDERED FOAM. LEFT 1ST MET. HEAD, PLANTAR SURFACE: FULL THICKNESS ULCERATION, APPEARS TO BE HEALING. CALLUS NOTED TO CAM-WOUND. WOUND BED IS MOIST, RED, DRAINING SEROSANGUINEOUS DRAINAGE. WOUND MEASURES 0.7X0.7X0.3. CLEANSED WOUND WITHW OUND CLEANSER, PATTED DRY. APPLIED AQUACEL AG TO WOUND BED THEN SECURED WITH BORDERED FOAM. RIGHT DORSUM OF FOOT: RUPTURED BLISTER. AREA MEASURES 0.9X0.7X0.1. RED, MOIST WOUND BED. DRAINING SCANT AMOUNTS OF SEROSANGUINEOUS DRAINGE. CLEANSED WITH WOUND CLEANSER, PATTED DRY. APPLIED AQUACEL AG AND SECURED WITH A BORDERED FOAM. PATIENT TOLERATED DRESSING CHANGE WELL. INSPECTED INSIDE OF RIGHT SHOE DUE TO THE DETERIORATION OF THE RIGHT DORSAL FOOT ALTERATION. FOOT MAY BE RUBBING AGAINST THE TONGUE OF THE SHOE. RECOMMEND CONTINUE WITH CURRENT WOUND CARE ORDERS TO 1ST METATARSAL HEADS START AQUACEL AG/BORDERED FOAM TO R. DORSAL FOOT DO NOT DOUBLE UP WITH OPTIFOAM OVER DORSAL AREA OF FOOT ENCOURAGE GOOD NUTRITION/HYDATION FOR WOUND HEALING
[2018-12-07 07:15] VITALS: BP 133/81
[2018-12-07 16:59] VITALS: BP 107/56
--- NOTE | 2018-12-07 17:57 | NUR ---
ASSUMED CARE AT 0730. ALERT AND ORIENTED PLEASANT COOPERATIVE. HX OF ALTERED MENTAL STATUS WEAKNESS. TRANSFERS WITH MIN ASSIST G BELT WALKER FROM BED TO RECLINER. FEEDS SELF WITH SET UP AND BUILTUP UTENSILS APPETITE GOOD. PT. USED A MANAGER MEDIA RELATIONS TO REMOVE SOCKS AND CUT A GASH WHICH BLED A LOT PT. IS ON APIXABAN. FOUR X FOUR AND MEPILEX PLACE.. FEET ARE EDEMATOUS. PARTICIPATING IN THERAPIES. IN SPECIAL CONTACT ISOLATION FOR ESBL IN URINE.
--- NOTE | 2018-12-07 19:44 | NUR ---
PT. WAS BLADDER SCANNED AT 1830 FOR 53CCS.
[2018-12-07 20:55] VITALS: BP 114/71
--- NOTE | 2018-12-07 21:25 | NUR ---
GAVE PRN VICODIN FOR COMPLAINT OF GENERALIZED PAIN RATED "6". SNACK PROVIDED. HAS SOFT CALL LIGHT ATTACHED TO T-SHIRT. APPLIED ANTIFUNGAL CREAM TO RED AREA ON COCCYX. MEPILEX ON DORSAL AREA OF RIGHT FOOT DRY/INTACT. MEPLIX ON DORSAL AREA OF LEFT FOOT HAS ABOUT A SILVER DOLLAR SIZE AREA OF DRIED RED DRAINAGE.
[2018-12-08 07:15] VITALS: BP 145/73
--- NOTE | 2018-12-08 16:27 | NUR ---
ASSUMMED CARE OF PT AT 0730, PT TRANSFERS WITH MIN/MOD ASSIST OF 1, GB WALKER, PT AMBULATES TO BATHROOM TO VOID, TAKING FOOD AND FLUIDS WELL, DENIES PAIN THIS SHIFT, OINTMENT APPLIED TO REDDENED AREA ON COCCYX, DRESSINGS INTACT TO BILATERAL FEET, PT VOIDED 600CC AND SCANNED FOR NO RESIDUAL, DISCUSSED INCREASED BLEEDING WITH PHSYCIAN, NO NEW ORDERS, PT DID TAKE BLOOD THINNER THIS AM, PARTICIPATED IN ALL THERAPIES, HOURLY ROUNDING COMPLETED, ASSESSMENT COMPLETE, WILL CONTINUE TO MONITOR.
--- NOTE | 2018-12-08 20:25 | NUR ---
SITTING UP IN RECLINER WATCHING TV. UPSET ABOUT THE MIX UPS WITH HIS FOOD ORDERS. PAIN MED GIVEN FOR COMPLAINT OF GENERALIZED DISCOMFORT RATED "6". SOFT CALL LIGHT HOOKED ONTO HIS T-SHIRT. SNACK PROVIDED. TOOK MEDICATIONS WHOLE 2 AT A TIME WITH WATER.
[2018-12-08 20:38] VITALS: BP 111/72
--- NOTE | 2018-12-09 06:01 | NUR ---
RESTED QUIETLY. POST VOID RESIDUAL COMPLETED X ONE PER ORDER AND THERE WAS ZERO RESIDUAL AFTER A VOID OF 700ML. ASSISTED WITH REPOSITIONING. ANTIFUNAL CREAM APPLIED TO RED AREA ON COCCYX WHICH IS STARTING LOOKING LESS RED. HOURLY ROUNDING IN PROGRESS.
[2018-12-09 08:00] VITALS: BP 143/72
--- NOTE | 2018-12-09 15:37 | NUR ---
ASSUMMED CARE OF PT AT 0730, PT ALERT AND ORIENTED, TRANSFERS WITH ASSIST OF 1, GB WALKER, PT AMBULATED INTO BATHROOM X 2 THIS SHIFT, PASSING FLATUS NO STOOL, TAKING FOOD AND FLUIDS WELL, COMPLAINED OF GENERALIZED PAIN, MEDICATED PER ORDER, PARTIAL BATH WITH ASSIST, ASSISTED WITH CHANGING CLOTHES, WOUND CARE DONE WITH PICTURES, PT HAD LUNCH IN DININGROOM, HOURLY ROUNDING COMPLETED ASSESSMENT COMPLETE, WILL CONTINUE TO MONITOR.
[2018-12-09 19:00] VITALS: BP 101/58
--- NOTE | 2018-12-09 20:00 | NUR ---
SITTING UP IN CHAIR SLEEPING. AWAKENED FOR HS REASSESSMENT AND MEDICATION PASS. PAIN MED GIVEN FOR COMPLAINT OF GENERALIZED PAIN RATED "6". SNACK PROVIDED.
--- NOTE | 2018-12-10 05:25 | NUR ---
RESTED QUIETLY. ASSISTED WITH REPOSITIONING. NO FURTHER COMPLAINT OF PAIN. HOURLY ROUNDING IN PROGRESS.
[2018-12-10 08:03] VITALS: BP 139/61
--- NOTE | 2018-12-10 16:28 | NUR ---
ASSUMMED CARE OF PT AT 0730, PT ALERT AND ORIENTED, PT TRANSFERS WITH MOD ASSIST, GB WALKER, PT COMPLAINS OF GENERALIZED PAIN, MEDICATED PER ORDER, PT HAD LUNCH IN DININGROOM, DRESSING ON BOTTOM OF FEET CAME OFF, AREAS CLEANSED AND DRESSING RE APPLIED, VOIDS PER URINAL IN LARGE AMOUNT, VOIDED 500CC WITH NO RESIDUAL,TAKING FOOD AND FLUIDS WELL, PARTICIPATED IN ALL THERAPIES, HOURLY ROUNDING COMPLETED, ASSESSMENT COMPLETE, WILL CONTINUE TO MONITOR.
[2018-12-10 20:00] VITALS: BP 120/63
--- NOTE | 2018-12-10 20:30 | NUR ---
SITTING UP IN CHAIR EATING A SNACK AND WATCHING TV. PAIN MEDICATIONS GIVEN FOR COMPLAINT OF GENERALIZED PAIN RATED "6". NEEDED MODERATE LIFTING ASSIST TO GET FROM SITTING TO STAND POSITION. AMBULATED TO THE BATHROOM WITH CGA, GAITBELT, WALKER. TOOK MEDICATIONS WHOLE TWO AT A TIME WITH APPLESAUCE.
--- NOTE | 2018-12-11 05:40 | NUR ---
RESTED QUIETLY. NO FURTHER COMPLAINT OF PAIN. ASSISTED WITH REPOSITIONING THROUGHOUT THE NIGHT. HOURLY ROUNDING IN PROGRESS.
[2018-12-11 08:00] VITALS: BP 143/84
--- NOTE | 2018-12-11 18:42 | NUR ---
PT HAS BEEN PLEASANT AND COOPERATIVE, MAKING GOOD PROGRESS TOWARD DISCHARGE GOALS. FALL PRECAUTIONS AND HOURLY ROUNDING IN PLACE.
[2018-12-11 20:25] VITALS: BP 117/62
--- NOTE | 2018-12-12 00:48 | NUR ---
ASSUMED CARE AT 1930. PATIENT IN CHAIR UNTIL AROUND 2099. UP WITH LIFTING ASSIST SIT TO STAND, GAIT BELT, WALKER. VOIDS PER URINAL AT [facility]. HAD BM AT HS. MEDICATED FOR PAIN AT HS. SEE MAR. ASSISTED WITH TURNS. TOOK PILLS WHOLE WITH WATER. DRESSINGS TO FEET C/D/I. HOURLY ROUNDS CONTINUE. BED ALARM ON. CALL LITE IN REACH.
--- NOTE | 2018-12-12 05:58 | NUR ---
SLEPT MOST OF THE NIGHT EXCEPT TO VOID. VOIDS IN LARGE AMOUNTS (OVER 500 ML EACH TIME) PER URINAL. NURSING POSITIONS AND EMPTIES URINAL. NO FURTHER C/O PAIN. TURNED Q2H. SOFT TOUCH CALL LITE IN REACH, BED ALARM ON. HOURLY ROUNDS CONTINUE.
[2018-12-12 08:05] VITALS: BP 134/76
--- NOTE | 2018-12-12 14:31 | NUR ---
CHINTAN spoke with pt son to review team conference and confirm pt to dc home with family today and [facility] services already current/active to continue to follow pt at home. Pt and pt son in agreement with plan. No DME needs as pt has all needed DME at home already, pt son to provide pt ride home as soon as possible; pt son to arrive for pt soon. [phone] fax [phone]
[2018-12-12 14:55] VITALS: BP 134/76
[2018-12-12 15:07] VITALS: BP 134/76
--- NOTE | 2018-12-12 16:04 | NUR ---
AM ASSESSMENT AND VITAL SIGNS COMPLETED DOCUMENTED. PT HAS WORKED WITH ALL THERAPIES AND HAS MET THE DISCHARGE GOALS. PT WILL BE DISCHARGED HOME WITH HIS SON AND WILL HAVE NURSING AND THERAPIES AT HOME. PT REFUSED PICTURES OF THE WOUNDS TO HIS FEET, HE PLANS TO SEE THE DR IN THE WOUND CARE CLINIC TOMORROW.
--- NOTE | 2018-12-12 16:28 | NUR ---
DISCHARGE INSTRUCTIONS DISCUSSED WITH PT AND HIS SON, PRINTED COPY PROVIDED FOR HOME. PT'S SON TOOK HIS BELONGINGS TO THE CAR, PT TRANSPORTED TO THE EXIT VIA WHEELCHAIR, ASSISTED INTO THE CAR, DISCHARGED HOME IN STABLE CONDITION.
== END 2018-12-12 16:40 | disposition home health service (06) | DRG 689 ==
LOC: M.REH 17:51
PROVIDERS: Family Medicine; Nurse Practitioner Adult Health; Specialist; ADMIT Physical Medicine & Rehabilitation
DX: N39.0 Urinary tract infection, site not specified (principal); G93.41 Metabolic encephalopathy; I42.9 Cardiomyopathy, unspecified; I48.91 Unspecified atrial fibrillation; E11.51 Type 2 diabetes mellitus with diabetic peripheral angiopathy without gangrene; N18.3 Chronic kidney disease, stage 3 (moderate); I12.9 Hypertensive chronic kidney disease with stage 1 through stage 4 chronic kidney disease, or unspecified chronic kidney disease; E11.65 Type 2 diabetes mellitus with hyperglycemia; I25.10 Atherosclerotic heart disease of native coronary artery without angina pectoris; J44.9 Chronic obstructive pulmonary disease, unspecified; E78.00 Pure hypercholesterolemia, unspecified; E87.5 Hyperkalemia; E11.22 Type 2 diabetes mellitus with diabetic chronic kidney disease; M10.9 Gout, unspecified; B96.20 Unspecified Escherichia coli [E. coli] as the cause of diseases classified elsewhere; Z16.12 Extended spectrum beta lactamase (ESBL) resistance; E11.649 Type 2 diabetes mellitus with hypoglycemia without coma; Z96.653 Presence of artificial knee joint, bilateral; Z86.73 Personal history of transient ischemic attack (TIA), and cerebral infarction without residual deficits; Z95.0 Presence of cardiac pacemaker; Z79.899 Other long term (current) drug therapy; Z88.1 Allergy status to other antibiotic agents; Z88.5 Allergy status to narcotic agent; Z83.3 Family history of diabetes mellitus

== ENCOUNTER 2019-02-23 17:00 | Inpatient (IN) | payer MEDICARE, BC ==
[~2019-02-23] VITALS: Ht 182.9 cm; Wt 106.6 kg
[2019-02-23 17:01] VITALS: BP 153/87
[2019-02-23 17:29] LABS: URINE BILIRUBIN NEGATIVE (Negative); URINE BLOOD NEGATIVE (Negative); URINE CLARITY CLEAR; URINE COLOR YELLOW; URINE GLUCOSE-RANDOM NEGATIVE (Negative); URINE KETONES NEGATIVE (Negative); URINE LEUKOCYTES-REFLEX NEGATIVE (Negative); URINE NITRITE-REFLEX NEGATIVE (Negative); URINE PROTEIN NEGATIVE (Negative); URINE SPECIFIC GRAVITY 1.015 (1.005-1.030)
[2019-02-23 17:53] LABS: ABSOLUTE EOSINOPHILS 0.1 thou/uL (0.0-0.7); ABSOLUTE LYMPHOCYTES 0.7 thou/uL (0.8-5.3); ABSOLUTE MONOCYTES 0.4 thou/uL (0.0-1.2); ABSOLUTE NEUTROPHILS 4.1 thou/uL (1.6-8.1); BASOPHILS 0.3 %; EOSINOPHILS 2.1 %; HEMATOCRIT 31.4 % (42.0-52.0); HEMOGLOBIN 10.1 gm/dL (14.0-18.0); LYMPHOCYTES 13.1 %; MCH 26.2 pg (26.0-34.0); MCHC 32.3 g/dL (28.0-37.0); MCV 81.3 fL (80.0-100.0); MONOCYTES 8.3 %; MPV 8.4 fl. (7.2-11.1); NUCLEATED RBCS 0 /100WBC; PLATELET COUNT* 118 thou/uL (150-400); POLYS 76.2 %; RBC 3.87 mil/uL (4.50-6.00); RDW-CV 18.7 % (10.5-14.5); WBC 5.4 thou/uL (4.0-11.0)
[2019-02-23 18:02] LABS: ANION GAP 9 mmol/L (7-16); BUN 43 mg/dL (7-18); CALCIUM 8.4 mg/dL (8.5-10.1); CHLORIDE 106 mmol/L (98-107); CO2 26 mmol/L (21-32); CREATININE 1.6 mg/dL (0.6-1.3); GLUCOSE 105 mg/dL (70-99); INR 1.1; PROTIME 11.7 Seconds (9.20-11.50); SODIUM 141 mmol/L (136-145)
[2019-02-23] MEDS ORDERED: PLAVIX 75 MG TA75 M1 PO (18:03)
[2019-02-23] MEDS ORDERED: MIRALAX17 GM PO (18:04)
[2019-02-23] MEDS ORDERED: PROTONIX 20 MG20 M1 PO (18:04)
[2019-02-23] MEDS ORDERED: TROSPIUM CHLORI20 MG PO (18:04)
[2019-02-23] MEDS ORDERED: CENTRUM SILVER1 EAC2 PO (18:05)
[2019-02-23] MEDS ORDERED: VITAMINC500 PO (18:05)
[2019-02-23] MEDS ORDERED: METFORMIN HCL500 MG PO (18:05)
[2019-02-23] MEDS ORDERED: SENNA8.6 MG PO (18:05)
[2019-02-23] MEDS ORDERED: REGLAN 10 MG TA10 MG PO (18:06)
[2019-02-23 18:18] LABS: ALBUMIN 3.4 g/dL (3.4-5.0); ALKALINE PHOSPHATASE 109 U/L (46-116); NT-PRO BRAIN NAT PEPTIDE 723 pg/mL (<300); SGOT 32 U/L (15-37); SGPT 29 U/L (30-65); TOTAL BILIRUBIN 0.4 mg/dL (<0.1-1.0); TOTAL PROTEIN 7.1 g/dL (6.4-8.2); TROPONIN-I LEVEL <0.06 ng/mL (<0.06)
[2019-02-23 20:41] VITALS: BP 164/85
[2019-02-23 20:55] VITALS: BP 174/93
[2019-02-23] MEDS ORDERED: FLEXERIL PO (21:07)
[2019-02-23 21:56] LABS: BE -4.9 mmol/L (-2 to +3); PCO2 29.5 mmHg (35.0-45.0); PO2 88.1 mmHg (75.0-100.0); pH 7.416 (7.340-7.450)
[2019-02-24] VITALS: BP 142/90
[2019-02-24 04:00] VITALS: BP 173/107
[2019-02-24 08:00] VITALS: BP 142/92
[2019-02-24 11:31] VITALS: BP 171/99
--- NOTE | 2019-02-24 11:34 | EKG ---
[place] [address] ELECTROCARDIOGRAM REPORT Name: LAINE MURRELL Room: [address] ADM IN .R.#: [id number] Admission: 02/23/19 Attend Phys: Miguel Phillips MD Discharge: Date of : 42 Report #: [id number] THIS REPORT FOR: //name// [facility] ED Test Date: 2019-02-23 Test Time: 17:55:34 Pat Name: LAINE MURRELL Department: Room: [facility] Gender: M Porter Sample Case: : 1940 Requested By: Shannan Ly Order Number: [id number] MD: Alex Sandoval Measurements Intervals [place] Rate: 64 P: 87 RI: 212 QRS: 136 QRSD: 154 T: 79 QT: 460 QTc: 475 Interpretive Statements Atrial-sensed ventricular-paced rhythm No further analysis attempted due to paced rhythm Compared to ECG 11/19/2018 09:12:35 No significant changes Electronically Signed On 02-24-2019 11:34:25 CDT by Alex Sandoval [email or web address] <ELECTRONICALLY SIGNED> By: Alex Sandoval MD, [facility] 02/24/19 1134 1755 1755 Alex Sandoval MD, [facility] /EPI
[2019-02-24 15:58] VITALS: BP 117/63
[2019-02-24 20:09] VITALS: BP 167/87
[2019-02-25] VITALS: BP 143/86
[2019-02-25 04:00] VITALS: BP 155/54
[2019-02-25 08:00] VITALS: BP 162/96
[2019-02-25] MEDS ORDERED: LEVOTHYROXINE112 MCG PO (10:27)
[2019-02-25] MEDS ORDERED: HYDROCHLOROTHIA25 M2 PO (10:27)
[2019-02-25 11:32] VITALS: BP 162/96
[2019-02-25 12:26] VITALS: BP 155/97
== END 2019-02-25 15:20 | disposition home health service (06) | DRG 93 ==
LOC: M.ERS 17:00 → M.2W 19:02 → M.TBA-ER 19:02 → M.2W 20:55
PROVIDERS: Personal Emergency Response Attendant; ADMIT Internal Medicine
DX: G92 Toxic encephalopathy (principal); I16.0 Hypertensive urgency; N18.3 Chronic kidney disease, stage 3 (moderate); I12.9 Hypertensive chronic kidney disease with stage 1 through stage 4 chronic kidney disease, or unspecified chronic kidney disease; Z96.653 Presence of artificial knee joint, bilateral; I48.91 Unspecified atrial fibrillation; E11.22 Type 2 diabetes mellitus with diabetic chronic kidney disease; M10.9 Gout, unspecified; I25.10 Atherosclerotic heart disease of native coronary artery without angina pectoris; J44.9 Chronic obstructive pulmonary disease, unspecified; D64.9 Anemia, unspecified; Z86.73 Personal history of transient ischemic attack (TIA), and cerebral infarction without residual deficits; Z95.0 Presence of cardiac pacemaker; Z88.6 Allergy status to analgesic agent; Z79.899 Other long term (current) drug therapy; T50.905A Adverse effect of unspecified drugs, medicaments and biological substances, initial encounter; Y92.89 Other specified places as the place of occurrence of the external cause; T46.4X5A Adverse effect of angiotensin-converting-enzyme inhibitors, initial encounter

== ENCOUNTER 2020-12-10 16:16 | Inpatient (IN) | payer MEDICARE, BC ==
[~2020-12-10] VITALS: Ht 182.9 cm; Wt 116.6 kg
--- NOTE | ~2020-12-10 | EMS ---
[address] [address] EMS Patient Care Report Name: LAINE MURRELL Room: [address] IN M.R.#: [id number] Admission: 12/10/20 Attend Phys: Francie Turner MD Discharge: 12/13/20 Date of : 42 Report #: [id number] THIS REPORT FOR: //name// Report Transmitted: 12/18/2020 12:44 EMS Care Summary [employer] [facility] Incident [id number] @ 12/10/2020 15:24 Incident Location [address] [place] [address] Patient LAINE MURRELL Male, 80 Years 1940 Patient Address [address] [place] [address] Patient History Pacemaker/AICD,Stroke/CVA,Cardiac Condition - Other,Atrial Fibrillation, Patient Allergies Tetracycline, Patient Medications Allopurinol, Potassium, Carvedilol, Chief Complaint Dizziness and syncope Disposition Transported No Lights/[place] Dispatch Reason Unconscious/Fainting Transported To [facility] Narrative 80 y/o male pt found sitting upright in his motorized scooter upon EMS arrival. Pt was alert and oriented with a GCS of 15. Pt states that he has been having multiple episodes of dizziness and syncope over the past couple of weeks. Pt appeared to be slightly pale. Initial vitals and blood glucose were assessed on [address] [place] [address] EMS Patient Care Report Name: LAINE MURRELL Room: [address] IN M.R.#: [id number] Admission: 12/10/20 Attend Phys: Francie Turner MD Discharge: 12/13/20 Date of : 42 Report #: [id number] scene revealing a low blood pressure of 72/palpation. Pt states that it has been running slightly low lately and that he was started on a new medication but is unsure of what that medication is. Pt was moved to [facility] and placed in ambulance. Once in ambulance, a 12-lead EKG was obtained showing a paced rhythm in which patient does have a pace maker. Blood pressure was reassessed with court recording monitor, still reading low. Lung sounds were assessed and were clear, equal, and bilateral. A 20G IV with saline lock was established in the patient's left posterior forearm and patient was given approximately 600mL of NS during transport, which did help his blood pressure. Pt denies any chest pain or difficulty breathing. He remained alert and oriented during transport and was continuously monitored and reassessed with no further complaints or changes. Care was transferred to RN at [facility]. Initial Vitals @15:44P: 71,R: 18,GCS: 15,Glucose: 228,SpO2: 96,Revised Trauma: 10, @15:50P: 68,R: 14,BP: 70/35,GCS: 15,SpO2: 93,Revised Trauma: 10, @15:58P: 65,R: 14,BP: 85/48,GCS: 15,SpO2: 93,Revised Trauma: 11, @16:10P: 74,R: 14,BP: 101/56,GCS: 15,SpO2: 94,Revised Trauma: 12,KS Suspected: false Assessments @15:46MENTAL:No Abnormalities,SKIN:Pale,HEENT:Head/Face: No Abnormalities,Eyes: No Abnormalities,Neck/Airway: No Abnormalities,LUNG SOUNDS:General: No Abnormalities,Left Upper: No Abnormalities,Right Upper: No Abnormalities,Left Lower: No Abnormalities,Right Lower: No Abnormalities,ABDOMEN:General: No Abnormalities,Left Upper: No Abnormalities,Right Upper: No Abnormalities,Left Lower: No Abnormalities,Right Lower: No Abnormalities,PELVIS//GI:No Abnormalities,EXTREMITIES:Left Arm: Paralysis,Left Arm: Other,Left Arm: Weakness,Left Leg: Paralysis,Left Leg: Weakness,Left Leg: Other,Right Arm: No Abnormalities,Right Leg: No Abnormalities,PULSE:NEURO:No Abnormalities, Impression Hypotension Procedures @15:45Saline Lock 10cc (20 ga) Site: Forearm-LeftResponse: UnchangedSucceeded Timeline 15:24,Call Received 15:24,Dispatched 15:27,En Route 15:29,Initial Responder On Scene 15:29,On Scene 15:30,At Patient 15:44,BP: 72/ M,PULSE: 71,RR: 18 R,SPO2: 96 Ox,ETCO2: ,B,PAIN: ,GCS: 15, 15:45,Saline Lock 10cc 20 ga Site: Forearm-Left,Response: UnchangedSucceeded, [place] [address] EMS Patient Care Report Name: LAINE MURRELL Room: [address] IN .R.#: [id number] Admission: 12/10/20 Attend Phys: Francie Turner MD Discharge: 12/13/20 Date of : 42 Report #: [id number] 15:50,Depart Scene 15:50,BP: 70/35 M,PULSE: 68,RR: 14 R,SPO2: 93 Ox,ETCO2: ,BG: ,PAIN: ,GCS: 15, 15:58,BP: 85/48 M,PULSE: 65,RR: 14 R,SPO2: 93 Ox,ETCO2: ,BG: ,PAIN: ,GCS: 15, 16:10,BP: 101/56 M,PULSE: 74,RR: 14 R,SPO2: 94 Ox,ETCO2: ,BG: ,PAIN: ,GCS: 15, 16:13,At Destination 16:15,Transfer Patient 16:51,Call Closed 16:51,In District Disclaimer v1.1 Copyright 2020 [employer] This EMS Care Summary contains data elements from the applicable legal record (which may be displayed differently). It is designed to provide pertinent information for the following purposes: continuity of care, clinical quality, and state data reporting. The complete legal record is available to ED staff and administrators of the receiving hospital in [employer]'s Patient Tracker. All data is provided "as is."
[~2020-12-10 16:16] MED LIST changes: +CENTRUM SILVER1 EAC2 PO; +HYDROCHLOROTHIA25 M2 PO; +METFORMIN HCL500 MG PO; +PLAVIX 75 MG TA75 M1 PO; +PROTONIX 20 MG20 M1 PO; +REGLAN 10 MG TA10 MG PO; +SENNA8.6 MG PO; +VITAMINC500 PO
[2020-12-10 16:18] VITALS: BP 117/67
[2020-12-10 16:54] LABS: ABSOLUTE BASOPHILS 0.1 thou/uL (0.0-0.2); ABSOLUTE EOSINOPHILS 0.1 thou/uL (0.0-0.7); ABSOLUTE LYMPHOCYTES 0.7 thou/uL (0.8-5.3); ABSOLUTE MONOCYTES 0.6 thou/uL (0.0-1.2); ABSOLUTE NEUTROPHILS 7.4 thou/uL (1.6-8.1); BASOPHILS 0.6 %; EOSINOPHILS 1.7 %; HEMATOCRIT 29.5 % (42.0-52.0); HEMOGLOBIN 9.5 gm/dL (14.0-18.0); LYMPHOCYTES 7.5 %; MCH 24.5 pg (26.0-34.0); MCHC 32.4 g/dL (28.0-37.0); MCV 75.8 fL (80.0-100.0); MONOCYTES 6.3 %; MPV 8.1 fl. (7.2-11.1); NUCLEATED RBCS 0 /100WBC; PLATELET COUNT* 128 thou/uL (150-400); POLYS 83.9 %; RBC 3.89 mil/uL (4.50-6.00); RDW-CV 21.5 % (10.5-14.5); WBC 8.8 thou/uL (4.0-11.0)
[2020-12-10 17:03] LABS: CALCIUM 7.8 mg/dL (8.5-10.1); CREATININE 2.9 mg/dL (0.6-1.3); POTASSIUM 4.8 mmol/L (3.5-5.1)
[2020-12-10 17:07] LABS: ALBUMIN 3.2 g/dL (3.4-5.0); TOTAL BILIRUBIN 0.3 mg/dL (<0.1-1.0); TOTAL PROTEIN 7.2 g/dL (6.4-8.2)
[2020-12-10 17:24] LABS: HYPOCHROMASIA 1+; LARGE PLATELETS OCCASIONAL; MACROCYTES Occasional; PLATELET ESTIMATE DECREASED
[2020-12-10 17:25] LABS: ANISOCYTOSIS 1+
[2020-12-10] MEDS ORDERED: METFORMIN HCL500 M3 PO (18:04)
[2020-12-10] MEDS ORDERED: PROSCAR 5MG TABL5 M1 PO (18:04)
[2020-12-10] MEDS ORDERED: ASPIRIN325 PO (18:04)
[2020-12-10] MEDS ORDERED: CARVEDILOL6.25 M1 PO (18:04)
[2020-12-10] MEDS ORDERED: FUROSEMIDE 40 M40 MG PO (18:04)
[2020-12-10] MEDS ORDERED: DITROPAN XL10 M1 PO (18:05)
[2020-12-10] MEDS ORDERED: POTASSIUM20 PO (18:05)
[2020-12-10] MEDS ORDERED: OMEPRAZOLE 20 M20 M1 PO (18:05)
[2020-12-10] MEDS ORDERED: MYRBETRIQ25 MG PO (18:05)
[2020-12-10] MEDS ORDERED: DIOVAN160 MG PO (18:05)
[2020-12-10 20:19] VITALS: BP 128/73
[2020-12-10 21:00] VITALS: BP 142/73
[2020-12-10 22:57] LABS: URINE BILIRUBIN NEGATIVE (Negative); URINE BLOOD TRACE (Negative); URINE CLARITY CLEAR; URINE COLOR YELLOW; URINE GLUCOSE-RANDOM NEGATIVE (Negative); URINE KETONES NEGATIVE (Negative); URINE LEUKOCYTES-REFLEX 1+ (Negative); URINE NITRITE-REFLEX NEGATIVE (Negative); URINE PROTEIN NEGATIVE (Negative); URINE UROBILINOGEN 0.2 E.U./dl (0.2-1.0)
[2020-12-10 23:12] LABS: BACTERIA-REFLEX 1-9 Few /HPF (None Seen); CASTS None Seen /LPF (None Seen); CRYSTALS None Seen /LPF (None Seen); SQUAMOUS 0-3 Few /LPF (0-3); URINE RBC 0-2 Rare /HPF (0-2); URINE WBC-REFLEX 0-5 Rare /HPF (0-5)
[2020-12-11 00:12] VITALS: BP 131/72
[2020-12-11 04:36] VITALS: BP 117/72
--- NOTE | 2020-12-11 05:22 | NUR ---
REPORT RECIEVED FROM ER. PT ORIENTED TO ROOM, CALL LIGHT SHOWN, FALL AGREEMENT WENT OVER, PT STATED UNDERSTANDING. ADMISSION DOCUMENTED. PT REPORTED PAIN IN HIS BACK, DR NOTIFIED, ORDERS RECIEVED. FALL PRECAUTIONS IN PLACE. IV PATENT. PT HAD 2 BOWEL MOVEMENTS THIS SHIFT. WILL CONTINUE WITH PLAN OF CARE.
[2020-12-11 08:00] VITALS: BP 110/62
--- NOTE | 2020-12-11 09:35 | EKG ---
[place] [address] ELECTROCARDIOGRAM REPORT Name: LAINE MURRELL Room: [address] ADM IN .R.#: [id number] Admission: 12/10/20 Attend Phys: Francie Turner, Discharge: Date of : 42 Date of Service: 12/10/20 1624 Report #: [id number] THIS REPORT FOR: //name// [facility] ED Test Date: 2020-12-10 Test Time: 16:24:59 Pat Name: LAINE MURRELL Department: Room: [facility] Gender: M Dustless Operator: YVETTE : 1940 Requested By: Fly Reyna Order Number: [id number] MD: Alex Sandoval Measurements Intervals [place] Rate: 70 P: MS: QRS: 135 QRSD: 141 T: 72 QT: 442 QTc: 477 Interpretive Statements Afib/flutter and ventricular-paced rhythm No further analysis attempted due to paced rhythm Baseline wander in lead(s) III,aVL Compared to ECG 02/23/2019 17:55:34 Atrial-sensed ventricular-paced complex(es) or rhythm no longer present Electronically Signed On 12-11-2020 9:35:30 CDT by Alex Sandoval [email or web address] <ELECTRONICALLY SIGNED> By: Alex Sandoval MD, [facility] 12/11/20 0935 1624 1624 Alex Sandoval MD, [facility] /EPI
[2020-12-11 11:49] VITALS: BP 113/67
--- NOTE | 2020-12-11 14:33 | NUR ---
WOUND NURSE: PATIENT SEEN TO ADDRESS MULTIPLE LESIONS ON BILATERAL FEET AND LE. RIGHT LOWER EXTREMITY WITH LINEAR SCAB MEASURING 9.5 X 1.0 CM. THIS IS FIRMLY ADHERED WITH NO DRAINAGE, PERIWOUND REDNESS, WARMTH, OR INDURATION. RIGHT PLANTAR FOOT WITH INTACT CALLOUS, BUT WITH EVIDENCE OF AN OLD WOUND WITH DRIED BLOOD NOTED EMBEDDED INTO THE CALLOUS. THERE IS NO DRAINAGE, REDNESS, WARMTH, OR INDURATION NOTED. THIS SITE MEASURES 3.0 X 1.5 CM. THERE IS A SUPERFICIAL LESION ON DORSAL FOOT MESURING 0.8 X 0.9 X 0.1 CM. PRESENTS PALE NON GRANULATING TISSUE IN TE WOUND BED. THERE IS NO ACTIVE DRANAE; NO PERIWOUND REDNESS, WARMTH, OR INDURATION. THE LEFT 2ND TOE CONTAINS A SHALLOW LESION MEASURING 1.0 X 0.6 X 0.1 CM. THIS PRESENTS A SHALLOW EROSION CONTAINING PALE NONGRANULATING TISSUE AND NO ACTIVE DRAINAGE. ATTEMPTED TO PALPATE PEDAL PULSES, BUT UNABLE. ATTEMPTED TO DOPPLER PULSES AND BIPHASIC ON TE RIGHT PT AND DP, BUT DISTANT AND MONOPHASIC ON THE LEFT. TOES AND FEET CODL AND PURPLE IN DEPENDENT POSITION. CAPILLARY REFILL TO BLE > 3 SECONDS. PATIENT REPORTNG PREVIOUS HISTORY OF STENTS IN RIGHT LEG, UNCERTAIN ON LLE. WOUND INTERVENTION WAS CALLED TO DR. Emily VITALE MD AND APPROVED. STABLE SCABS PAINTED WITH BETADINE SWAB, RIGHT DORSAL FOOT AND LEFT 2ND TOE APPLIED SILVERMED WTH AQUACEL. BORDERED FOAM TO RT DORSAL FOOT WOUND, 2 INCH CONFORM TO LT 2ND TOE. PATIENT AND SON PRESENT DISCUSSED FOLLOW UP WITH DR MIRZA AND VACULAR DEPT AT [facility] WHO PLACED STENTS. THEY STATED THEY UNDERSTAND.
--- NOTE | 2020-12-11 14:50 | NUR ---
Pt is confused today. Resides at home with family. Normally fairly independent Pt has walker, power wc, wc, and RW. Pt also has a cpap that he no longer uses. Hx of [facility]. Hx of [facility]. Wound care consulted. Iv fluids. Anticipate home with HH at [facility], possibly tomorrow. HH orders, H&P and facesheet will need to be faxed to [employer] at f:[phone]
[2020-12-11 17:16] VITALS: BP 111/77
--- NOTE | 2020-12-11 18:37 | NUR ---
Patient resting in room with eyes closed. call light and all personal belongings within reach. RA, IV fluids running, heart monitor on. Report to be given to manager shift nurse.
[2020-12-12 01:14] VITALS: BP 129/76
[2020-12-12 04:35] VITALS: BP 136/64
[2020-12-12 06:04] LABS: HEMATOCRIT 29.8 % (42.0-52.0); HEMOGLOBIN 9.5 gm/dL (14.0-18.0); MCH 24.1 pg (26.0-34.0); MCHC 31.9 g/dL (28.0-37.0); MCV 75.5 fL (80.0-100.0); MPV 9.1 fl. (7.2-11.1); RBC 3.95 mil/uL (4.50-6.00); RDW-CV 20.4 % (10.5-14.5); WBC 6.2 thou/uL (4.0-11.0)
[2020-12-12 06:16] LABS: CALCIUM 8.3 mg/dL (8.5-10.1); POTASSIUM 4.4 mmol/L (3.5-5.1)
[2020-12-12 06:17] LABS: CREATININE 1.7 mg/dL (0.6-1.3)
--- NOTE | 2020-12-12 06:44 | NUR ---
NO ACUTE CHANGES THROUGHOUT SHIFT. FULL ASSESSMENT COMPLETED CHARTED. ALL ROUNDINGS COMPLETED, ALL NEEDS MET. SEE CHARTING FOR DETAILS. FALL PRECAUTIONS IN PLACE.
[2020-12-12 08:00] VITALS: BP 137/76
--- NOTE | 2020-12-12 11:54 | NUR ---
RECEIVED REPORT AROUND 0715. ASSUMED CARE. VS AND ASSESSMENT CHARTED. IV INTACT. HEART MONITOR ATTACHED AT [facility]. PT UP IN CHAIR NOW. BOOTS INTACT. MEDS GIVEN PER SEP. HAD PAIN THIS AM, RIGHT LEG. CALL LIGHT WITH IN REACH. WILL CONTINUE TO MONITOR.
[2020-12-12 12:00] VITALS: BP 83/33
[2020-12-12 17:00] VITALS: BP 102/68
--- NOTE | 2020-12-12 18:15 | NUR ---
NO NEW CHANGES. IV INTACT RIGHT AC. [facility] PT UP ASSIST X2. SAT IN CHAIR MOST OF SHIFT. MEDS GIVEN PER PAR. HOURLY ROUNDING PERFORMED. POSSIBLE D/C TOMORROW. CALL LIGHT WITH IN REACH. WILL CONTINUE TO MONITOR.
[2020-12-12 20:00] VITALS: BP 141/75
[2020-12-13 00:23] VITALS: BP 146/81
[2020-12-13 04:29] VITALS: BP 140/77
--- NOTE | 2020-12-13 06:24 | NUR ---
NO ACUTE CHANGES THROUGHOUT SHIFT. FULL ASSESSMENT COMPLETED CHARTED. ALL ROUNDINGS COMPLETED, ALL NEEDS MET. SEE CHARTING FOR DETAILS. FALL PRECAUTIONS IN PLACE.
[2020-12-13 08:00] VITALS: BP 133/75
[2020-12-13 11:32] LABS: CALCIUM 8.1 mg/dL (8.5-10.1); CREATININE 1.6 mg/dL (0.6-1.3); POTASSIUM 4.4 mmol/L (3.5-5.1)
[2020-12-13 12:18] VITALS: BP 133/75
[2020-12-13 13:27] VITALS: BP 117/81
--- NOTE | 2020-12-13 14:23 | NUR ---
RECEIVED REPORT AROUND 0715. ASSUMED CARE. VS AND ASSESSMENT CHARTED. IV INTACT. HEART MONITOR ATTACHED AT [facility]. PT UP IN CHAIR. MEDS GIVEN PER SEP. NO PAIN THIS SHIFT. DISCHARGE ORDERS RECEIVED. IV TAKEN OUT. HOURLY ROUNDING PERFORMED. SON CALLED. HEART MONITOR OFF. WAITIN ON RIDE NOW. DISCHARGE PAPER WORK GONE OVER WITH PT. COMMUNICATED UNDERSTANDING. CALL LIGHT WITH IN REACH. WILL CONTINUE TO MONITOR.
== END 2020-12-13 15:40 | disposition home or self-care (01) | DRG 683 ==
LOC: M.ERS 16:16 → M.2W 17:36 → M.TBA-ER 17:36 → M.2W 20:17
PROVIDERS: Emergency Medicine Emergency Medical Services; Family Medicine; ADMIT Internal Medicine; ATTEND Internal Medicine
DX: N17.0 Acute kidney failure with tubular necrosis (principal); E44.0 Moderate protein-calorie malnutrition; E87.1 Hypo-osmolality and hyponatremia; I69.354 Hemiplegia and hemiparesis following cerebral infarction affecting left non-dominant side; I48.91 Unspecified atrial fibrillation; E11.22 Type 2 diabetes mellitus with diabetic chronic kidney disease; I25.10 Atherosclerotic heart disease of native coronary artery without angina pectoris; N18.30 Chronic kidney disease, stage 3 unspecified; J44.9 Chronic obstructive pulmonary disease, unspecified; I48.0 Paroxysmal atrial fibrillation; E03.9 Hypothyroidism, unspecified; Z20.822 Contact with and (suspected) exposure to COVID-19; Z96.653 Presence of artificial knee joint, bilateral; Z95.0 Presence of cardiac pacemaker; Z68.34 Body mass index [BMI] 34.0-34.9, adult; Z79.01 Long term (current) use of anticoagulants; Z79.899 Other long term (current) drug therapy; Z88.5 Allergy status to narcotic agent; Z88.1 Allergy status to other antibiotic agents